=== PATIENT | male | born 1930 | race Caucasian/White ===

== ENCOUNTER 2019-02-05 15:05 | Inpatient (IN) | payer OTHER, MEDICARE ==
[~2019-02-05] VITALS: Ht 175.3 cm; Wt 72.1 kg
[2019-02-05 15:23] VITALS: BP_SYST 119
[2019-02-05 16:24] LABS: BASOPHILS % (AUTO) 0.5 % (0.0-2.0); EOSINOPHILS # (AUTO) 0.3 K/uL (0.0-0.4); EOSINOPHILS % (AUTO) 3.3 % (0.0-4.0); HEMATOCRIT 36.5 % (36-54); HEMOGLOBIN 12.3 g/dL (14.0-18.0); LYMPHOCYTES # (AUTO) 0.7 K/uL (1.0-5.5); LYMPHOCYTES % (AUTO) 8.7 % (20.5-51.5); MEAN CORPUSCULAR HEMOGLOBIN 32 pg (27-31); MEAN CORPUSCULAR HGB CONC 34 % (32-36); MEAN CORPUSCULAR VOLUME 95 fL (79.0-98.0); MONOCYTES # (AUTO) 0.5 K/uL (0.0-1.0); NEUTROPHILS # (AUTO) 6.1 K/uL (1.8-7.7); NEUTROPHILS % (AUTO) 80.5 % (40.0-70.0); PLATELET COUNT (AUTO) 173 K/uL (130-430); RED BLOOD CELL COUNT(AUTO) 3.84 MIL/uL (4.2-6.2); RED CELL DISTRIBUTION WIDTH 14.3 % (9.0-15.0); WHITE BLOOD COUNT (AUTO) 7.6 K/uL (4.8-10.8)
[2019-02-05] MEDS ORDERED: ALBUTEROL SULFATE 0.083% 2.5 MG/3 ML VIAL.NEB IH ONE (16:30)
[2019-02-05] MEDS ORDERED: IPRATROPIUM BROM 0.5 MG/2.5 ML VIAL.NEB (ATROVENT) IH ONE (16:30)
[2019-02-05 16:36] LABS: ANION GAP 13 (5-15); CALCIUM 9.3 mg/dL (8.4-11.0); CHLORIDE 106 mmol/L (98-107); GLUCOSE 93 mg/dL (70-99); POTASSIUM 3.9 mmol/L (3.5-5.1); SODIUM SERUM 142 mmol/L (136-145); UREA NITROGEN, BLOOD 41 mg/dL (8-21)
[2019-02-05 16:42] LABS: ALANINE AMINOTRANSFERASE 32 U/L (12-78); ALBUMIN 3.6 g/dL (3.4-4.8); ASPARTATE AMINOTRANSFERASE 28 U/L (10-37); TOTAL BILIRUBIN 0.7 mg/dL (0.0-1.0)
[2019-02-05] MEDS ORDERED: LISI-600 PO (17:25)
[2019-02-05] MEDS ORDERED: ROSU10TA2 PO (17:25)
[2019-02-05] MEDS ORDERED: SERT100T PO (17:25)
[2019-02-05] MEDS ORDERED: NACL 0.9% 1,000 ML IV ONE (17:30)
[2019-02-05] MEDS ORDERED: cefTRIAXone 1 GM in D5W 50 ML IV ONE (17:30)
[2019-02-05] MEDS ORDERED: cefTRIAXone 1 GM VIAL ONE (17:39)
[2019-02-05 18:22] VITALS: BP_SYST 135
[2019-02-05] MEDS ORDERED: IPRATROPIUM/ALBUTEROL SULFATE 3 ML AMPUL.NEB (DUONEB) INH PRN (18:30)
[2019-02-05] MEDS ORDERED: HYDROcodone/ACETAMIN 5-325 MG TAB (NORCO/ VICODIN) PO PRN (18:30)
[2019-02-05] MEDS ORDERED: ACETAMINOPHEN 325 MG TABLET PO PRN (18:30)
[2019-02-05] MEDS ORDERED: ONDANSETRON HCL 4 MG/2 ML VIAL IVP PRN (18:30)
[2019-02-05 19:33] LABS: PROTHROMBIN TIME 10.2 SECS (9.5-12.5)
[2019-02-05 19:39] LABS: PHOSPHORUS 3.2 mg/dL (2.7-4.5)
[2019-02-05 20:00] VITALS: BP_SYST 122
[2019-02-05 20:00] LABS: FREE T4 (FREE THYROXINE) 0.8 ng/dL (0.6-1.6); THYROID STIMULATING HORMONE 1.51 uIu/mL (0.34-4.82)
[2019-02-05 20:43] VITALS: BP_SYST 135
[2019-02-05] MEDS ORDERED: ZOLPIDEM TARTRATE 5 MG TABLET PO PRN (21:45)
[2019-02-05] MEDS: HEPARIN SODIUM,PORCINE 5000 UNITS/ML VIAL SUBCUT SCH (22:36)
[2019-02-05] MEDS: DOCUSATE SODIUM 100 MG CAPSULE PO SCH (22:36)
[2019-02-06 00:14] VITALS: BP_SYST 115
[2019-02-06 06:32] LABS: BASOPHILS % (AUTO) 0.9 % (0.0-2.0); EOSINOPHILS # (AUTO) 0.3 K/uL (0.0-0.4); EOSINOPHILS % (AUTO) 4.9 % (0.0-4.0); HEMATOCRIT 31.8 % (36-54); LYMPHOCYTES # (AUTO) 0.6 K/uL (1.0-5.5); LYMPHOCYTES % (AUTO) 12.2 % (20.5-51.5); MEAN CORPUSCULAR HEMOGLOBIN 33 pg (27-31); MEAN CORPUSCULAR HGB CONC 35 % (32-36); MEAN CORPUSCULAR VOLUME 94 fL (79.0-98.0); MONOCYTES # (AUTO) 0.5 K/uL (0.0-1.0); MONOCYTES % (AUTO) 9.2 % (1.7-9.3); NEUTROPHILS # (AUTO) 3.7 K/uL (1.8-7.7); NEUTROPHILS % (AUTO) 72.8 % (40.0-70.0); PLATELET COUNT (AUTO) 142 K/uL (130-430); RED BLOOD CELL COUNT(AUTO) 3.38 MIL/uL (4.2-6.2); RED CELL DISTRIBUTION WIDTH 14.3 % (9.0-15.0)
[2019-02-06 06:47] LABS: ANION GAP 10 (5-15); CALCIUM 8.6 mg/dL (8.4-11.0); CHLORIDE 111 mmol/L (98-107); CREATININE 1.02 mg/dL (0.55-1.30); GLUCOSE 107 mg/dL (70-99); POTASSIUM 3.7 mmol/L (3.5-5.1); SODIUM SERUM 144 mmol/L (136-145); UREA NITROGEN, BLOOD 30 mg/dL (8-21)
[2019-02-06 07:51] LABS: WHITE BLOOD COUNT (AUTO) 5.1 K/uL (4.8-10.8)
[2019-02-06 07:57] VITALS: BP_SYST 129
[2019-02-06] MEDS: DOCUSATE SODIUM 100 MG CAPSULE PO SCH (08:56)
[2019-02-06] MEDS: HEPARIN SODIUM,PORCINE 5000 UNITS/ML VIAL SUBCUT SCH (08:57)
[2019-02-06] MEDS ORDERED: MEMANTINE HCL 5 MG TABLET PO SCH (09:00)
[2019-02-06] MEDS ORDERED: SERTRALINE HCL 50 MG TABLET PO SCH (09:00)
[2019-02-06 12:00] VITALS: BP_SYST 133
[2019-02-06] MEDS ORDERED: LORazepam 1 MG TABLET PO PRN (14:15)
[2019-02-06] MEDS ORDERED: cefTRIAXone 1 GM IVPB PREMIX 50 ML IV SCH (18:30)
[2019-02-07] MEDS ORDERED: SERTRALINE HCL 50 MG TABLET PO SCH (09:00)
[2019-02-07] MEDS ORDERED: LISINOPRIL 20 MG TABLET PO SCH (09:00)
[2019-02-07] MEDS ORDERED: ATORVASTATIN 20 MG TABLET PO SCH (09:00)
== END 2019-02-06 14:55 | disposition left against medical advice (07) | DRG 640 ==
LOC: SED 15:05 → STU 17:35
PROVIDERS: ADMIT Student in an Organized Health Care Education/Training Program; ATTEND Student in an Organized Health Care Education/Training Program
DX: E86.0 Dehydration (principal); J18.9 Pneumonia, unspecified organism; J40 Bronchitis, not specified as acute or chronic; I10 Essential (primary) hypertension; E78.00 Pure hypercholesterolemia, unspecified; F29 Unspecified psychosis not due to a substance or known physiological condition; F32.9 Major depressive disorder, single episode, unspecified; G30.9 Alzheimer's disease, unspecified; F02.80 Dementia in other diseases classified elsewhere, unspecified severity, without behavioral disturbance, psychotic disturbance, mood disturbance, and anxiety; F41.9 Anxiety disorder, unspecified; E78.5 Hyperlipidemia, unspecified; Z53.21 Procedure and treatment not carried out due to patient leaving prior to being seen by health care provider; Z79.899 Other long term (current) drug therapy
CPT/HCPCS: 36415; 71045; 80048; 80053; 80061; 83036; 83605; 83735-TC; 83880; 84100-TC; 84439; 84443-TC; 84484; 85025; 85610-TC; 85730-TC; 87040-TC; 93005; 94640; 94760; 96365; 99285; G0378; J0696; J1644; J7030; J7613; J7620

== ENCOUNTER 2019-09-16 16:33 | Inpatient (IN) | payer OTHER, MEDICARE, SELFPAY ==
[~2019-09-16] VITALS: Ht 170.2 cm; Wt 70.8 kg
[2019-09-16 16:33] VITALS: BP_SYST 140
[~2019-09-16 16:33] MED LIST: LISI-600 PO; ROSU10TA2 PO; SERT100T PO
--- NOTE | 2019-09-16 16:33 | NUR ---
BROUGHT BACK TO BED #6 VIA WHEELCHAIR, TRIAGED, REPORT GIVEN TO LATONYA CASTELLANOS IS A POOR HISTORIAN, RECEIVED HISTORY FROM AND DAUGHTERS
--- NOTE | 2019-09-16 16:35 | NUR ---
PT C/O WORSENING SOB THAT HAS PROGRESSIVELY WORSE RECENTLY. PEDAL SWELLING NOTED. PT HAS H/O CHF. SPO2 STABLE, DIMINISHED LUNG SOUNDS.
--- NOTE | 2019-09-16 16:50 | NUR ---
ER at bedside examining patient.
[2019-09-16] MEDS ORDERED: FUROSEMIDE 40 MG/4 ML VIAL IVP ONE (17:00)
[2019-09-16] MEDS ORDERED: ASPIRIN 325 MG TABLET PO ONE (17:00)
[2019-09-16 17:04] LABS: BASOPHILS % (AUTO) 0.8 % (0.0-2.0); EOSINOPHILS # (AUTO) 0.1 K/uL (0.0-0.4); EOSINOPHILS % (AUTO) 1.7 % (0.0-4.0); HEMATOCRIT 42.5 % (36-54); HEMOGLOBIN 13.8 g/dL (14.0-18.0); LYMPHOCYTES # (AUTO) 0.4 K/uL (1.0-5.5); LYMPHOCYTES % (AUTO) 10.9 % (20.5-51.5); MEAN CORPUSCULAR HEMOGLOBIN 31 pg (27-31); MEAN CORPUSCULAR HGB CONC 33 % (32-36); MEAN CORPUSCULAR VOLUME 94 fL (79.0-98.0); MONOCYTES # (AUTO) 0.3 K/uL (0.0-1.0); MONOCYTES % (AUTO) 8.4 % (1.7-9.3); NEUTROPHILS # (AUTO) 3.1 K/uL (1.8-7.7); NEUTROPHILS % (AUTO) 78.2 % (40.0-70.0); PLATELET COUNT (AUTO) 146 K/uL (130-430); RED CELL DISTRIBUTION WIDTH 16.8 % (9.0-15.0)
[2019-09-16 17:13] LABS: ANION GAP 5 (5-15); CHLORIDE 104 mmol/L (98-107); CREATININE 1.47 mg/dL (0.55-1.30); GLUCOSE 113 mg/dL (70-99); POTASSIUM 4.2 mmol/L (3.5-5.1); SODIUM SERUM 137 mmol/L (136-145); UREA NITROGEN, BLOOD 13 mg/dL (8-21)
[2019-09-16 17:21] LABS: ALANINE AMINOTRANSFERASE 32 U/L (12-78); ALBUMIN 3.1 g/dL (3.4-4.8); ASPARTATE AMINOTRANSFERASE 29 U/L (10-37); TOTAL BILIRUBIN 0.6 mg/dL (0.0-1.0)
[2019-09-16] MEDS ORDERED: VANCOMYCIN HCL 1,000 MG in NS 250 ML IV ONE (18:00)
[2019-09-16] MEDS ORDERED: VANCOMYCIN HCL 1000 MG/VIAL IV ONE (18:27)
--- NOTE | 2019-09-16 18:44 | NUR ---
Patient will be admitted to care of Dr. Brown. Admitted to telemetry unit. Waiting for room assignment. Belongings list completed. Complete and up to date summary report printed. SBAR report to be given at bedside with opportunity for questions.
--- NOTE | 2019-09-16 18:45 | NUR ---
Unable to complete medication reconcilliation at this time.
--- NOTE | 2019-09-16 19:17 | NUR ---
Report given to Rob for continuation of care.
[2019-09-16] MEDS ORDERED: HALOPERIDOL LACTATE 5 MG/ML VIAL IM ONE (19:30)
[2019-09-16] MEDS ORDERED: DIPHENHYDRAMINE INJ 50 MG/ML VIAL IVP ONE (19:30)
[2019-09-16] MEDS ORDERED: QUEtiapine FUMARATE 25 MG TABLET PO SCH (19:30)
--- NOTE | 2019-09-16 20:12 | NUR ---
Patient will be admitted to care of . Admitted to Tele unit. Will go to room 120B. Belongings list completed. Complete and up to date summary report printed. SBAR report to be given at bedside with opportunity for questions.
--- NOTE | 2019-09-16 20:26 | NUR ---
Transfer to Tele via ACLS protocol. Licensed nurse present. IV present no signs or symptoms of infiltration.
--- NOTE | 2019-09-16 20:35 | NUR ---
Phelbotomist at bedside, drawn blood for Lactic acid.
--- NOTE | 2019-09-16 20:51 | NUR ---
ADMIT NOTE Received pt from ER to the floor with a diagnosis of PNA, ACUTE RESPIRATORY. Admission process initiated. patient oriented to pain management, safety and call light-pt is confused, safety p[recaution in place by primary rn.
[2019-09-16 21:12] VITALS: BP_SYST 98
--- NOTE | 2019-09-16 21:30 | NUR ---
Patient is ambulating to the doorway, confused. Reoriented patient to hospital and plan of care. Patient yells abruptly after being covered saying he is cold. Explained to patient that he has blankets covering him but patient is not calming down. Will continue to monitor.
--- NOTE | 2019-09-16 23:30 | NUR ---
Patient is confused, walks to the restroom but does not remember where he is after orienting patient. No signs of acute respiratory distress observed. Will continue to monitor.
--- NOTE | 2019-09-17 01:07 | NUR ---
Patient is agitated, 8 min of Uncontrolled Afib with highest heart rate at 122, Blood pressure 115/ 65, pulse 75. No signs of shortness of breath. Orienting patient to room and patient is complaining that it is cold and he cannot feel comfortable. Will continue to monitor.
[2019-09-17 01:48] VITALS: BP_SYST 100
--- NOTE | 2019-09-17 01:55 | NUR ---
2ND PAGE FOR DR DEUTSCH.
--- NOTE | 2019-09-17 02:15 | NUR ---
Patient is confused ambulates to the doorway with steady gait. Reorientation to be provided and explained to patient that he has to stay in the room and bed for his safety. Patient is not understanding and does not know which hospital he is at.
--- NOTE | 2019-09-17 02:39 | NUR ---
3RD PAGE FOR DR. DEUTSCH.
--- NOTE | 2019-09-17 02:53 | NUR ---
PAGED I PAGED DR. DEUTSCH I SPOKE WITH JOSELITO CRISTINA
--- NOTE | 2019-09-17 02:57 | NUR ---
SPOKE TO DR. DEUTSCH, MADE AWARE OF 8 MIN OF UNCONTROLLED AFIB WITH ELEVATED HEART RATE OF 122, NEW ORDER OF CONSULT DR. CIFUENTES RECEIVED AND HALDOL 2MG PO Q4 PRN RECEIVED.
--- NOTE | 2019-09-17 03:30 | NUR ---
Patient is resting, no signs of shortness of breath noted. Will continue to monitor.
[2019-09-17] MEDS: DIPHENHYDRAMINE INJ 50 MG/ML VIAL IVP PRN ×2 (03:46→14:16)
--- NOTE | 2019-09-17 04:12 | NUR ---
CONSULT: CONSULT CALLED FOR DR. CIFUENTES I SPOKE WITH UMURY IBETH REASON FOR CONSULT: DYSRHYTHMIA / A FIB REQUESTING CONSULT: DR. DEUTSCH EXPLORATION MANAGER PHONE NUMBER: [phone]
[2019-09-17 06:02] LABS: BILIRUBIN,URINE NEGATIVE (NEGATIVE); BLOOD, URINE NEGATIVE (NEGATIVE); CLARITY/URINE CLEAR (CLEAR); COLOR,URINE YELLOW (YELLOW); GLUCOSE,URINE NEGATIVE (NEGATIVE); KETONES,URINE NEGATIVE (NEGATIVE); LEUKOCYTE ESTERASE ,URINE NEGATIVE (NEGATIVE); NITRITE, URINE NEGATIVE (NEGATIVE); PH,URINE 5.5 (5.0-8.0); PROTEIN URINE TRACE (NEGATIVE); UROBILINOGEN,URINE 0.2 (0.2-1.0)
[2019-09-17 06:43] LABS: BASOPHILS % (AUTO) 0.8 % (0.0-2.0); EOSINOPHILS % (AUTO) 0.8 % (0.0-4.0); HEMATOCRIT 41.1 % (36-54); HEMOGLOBIN 13.4 g/dL (14.0-18.0); LYMPHOCYTES # (AUTO) 0.3 K/uL (1.0-5.5); LYMPHOCYTES % (AUTO) 7.2 % (20.5-51.5); MEAN CORPUSCULAR HEMOGLOBIN 31 pg (27-31); MEAN CORPUSCULAR HGB CONC 33 % (32-36); MEAN CORPUSCULAR VOLUME 94 fL (79.0-98.0); MONOCYTES # (AUTO) 0.4 K/uL (0.0-1.0); MONOCYTES % (AUTO) 8.5 % (1.7-9.3); NEUTROPHILS # (AUTO) 3.4 K/uL (1.8-7.7); NEUTROPHILS % (AUTO) 82.7 % (40.0-70.0); PLATELET COUNT (AUTO) 129 K/uL (130-430); RED BLOOD CELL COUNT(AUTO) 4.38 MIL/uL (4.2-6.2); RED CELL DISTRIBUTION WIDTH 16.7 % (9.0-15.0); WHITE BLOOD COUNT (AUTO) 4.1 K/uL (4.8-10.8)
[2019-09-17 07:13] LABS: ALANINE AMINOTRANSFERASE 30 U/L (12-78); ALBUMIN 2.9 g/dL (3.4-4.8); ANION GAP 8 (5-15); ASPARTATE AMINOTRANSFERASE 28 U/L (10-37); CHLORIDE 104 mmol/L (98-107); CREATININE 1.48 mg/dL (0.55-1.30); FREE T4 (FREE THYROXINE) 0.9 ng/dl (0.8-1.5); GLUCOSE 95 mg/dL (70-99); PHOSPHORUS 3.8 mg/dL (2.7-4.5); POTASSIUM 3.6 mmol/L (3.5-5.1); SODIUM SERUM 140 mmol/L (136-145); THYROID STIMULATING HORMONE 8.13 uIu/mL (0.36-3.74); TOTAL BILIRUBIN 0.7 mg/dL (0.0-1.0); UREA NITROGEN, BLOOD 13 mg/dL (8-21)
--- NOTE | 2019-09-17 07:21 | NUR ---
CLOSING NOTES Patient is ambulating regardless of reorienting, steady gait. Patient is not agitated, no shortness of breath observed, room air. Iv site patent, dressings c/d/i. Call light within reach, bed alarm off per patient request, bed at lowest position. Patient has put on clothes on, as patient is confused and refuses to change into hospital gown. All needs met throughout shift. Endorsed care to morning nurse that if patient refuses Haldol 2mg PO, HALDOL IM 2MG can be provided and 8 min of Afib during the overnight stocker and that patient was still agitated after the first Benadryl.
--- NOTE | 2019-09-17 08:07 | NUR ---
INITIAL NOTES: Patient is awake but confused, resting in bed. No signs of distress or nonlabored breathing on RA. Denies pain or nausea. IV on LFA was not intact, removed and applied a new IV on RFA #24G. Cluster care was provided, breakfast tray was given along w/morning meds, skin care was provided as well. Report was received by awake overnight monitor nurse. Patient will need frequent reorientation throughout shift. Bed is low, locked, 2 side rails up and call light is within reach. Burt DIAL
[2019-09-17] MEDS: cefTRIAXone 1 GM in D5W 50 ML IV SCH (08:16)
[2019-09-17] MEDS: ATORVASTATIN 20 MG TABLET PO SCH (08:16)
[2019-09-17] MEDS: AZITHROMYCIN 500 MG in NS 250 ML IV SCH (08:16)
[2019-09-17] MEDS: SERTRALINE HCL 50 MG TABLET PO SCH (08:17)
[2019-09-17] MEDS ORDERED: LISINOPRIL 20 MG TABLET PO SCH (09:00)
[2019-09-17 09:23] VITALS: BP_SYST 118
--- NOTE | 2019-09-17 09:28 | NUR ---
Nutrition Update [place] Scale 18 noted. Pt admitted for pneumonia, acute respiratory. Diet: mechanical soft BMI: 24.6 kg/m2 RD to follow per nutrition care standards.
--- NOTE | 2019-09-17 10:20 | NUR ---
Placed patient up on chair, reoriented patient several times as he forgets because of the dementia. I dialed his son in his room so patient could talk to him. Bed is low, locked, 2 side rails are up and call light is within reach. Burt DIAL
--- NOTE | 2019-09-17 10:40 | NUR ---
EKG ON HOLD: Per , hold EKG for now. We will do procedure tomorrow if patient is negative. Asked Nestor to relay the message to the EKG team. Burt DIAL
[2019-09-17] MEDS ORDERED: CARVEDILOL 6.25 MG TABLET (COREG) PO ONE (11:00)
[2019-09-17] MEDS ORDERED: FUROSEMIDE 40 MG/4 ML VIAL IVP ONE (11:00)
--- NOTE | 2019-09-17 12:15 | NUR ---
Patient is sitting on chair, gave meal tray, gave reorientation. Bed is low, locked, 2 side rails up and call light is within reach. Burt DIAL
[2019-09-17 12:55] VITALS: BP_SYST 110
[2019-09-17] MEDS: HALOPERIDOL 1 MG TABLET (HALDOL) PO PRN (13:33)
--- NOTE | 2019-09-17 14:17 | NUR ---
Patient was reoriented and then sat him back in bed, getting a little anxious and agitated from being alone in the room. Benadryl was given and tucked in. 3 side rails are up to prevent him from falling. Bed is low, locked, 2 side rails up and call light is within reach. Burt DIAL
[2019-09-17] MEDS ORDERED: TAMSULOSIN HCL 0.4 MG CAP PO ONE (15:45)
--- NOTE | 2019-09-17 16:01 | NUR ---
CONSULTATION PAGED REASON FOR CONSULTATION:CONFUSION WAS CONSULT CALLED?Y PERSON WHO WAS NOTIFIED:CLAIRE CONSULTING PHYSICIAN:CLIF KUO ( PROJECT MANAGER/DESIGN MANAGER) CRAFT WORKER SPECIALTY:PSYCH CRAFT WORKER PHONE NUMBER:[phone] REQUESTING PHYSICIAN:BILL DOOLEY
[2019-09-17 16:44] VITALS: BP_SYST 116
--- NOTE | 2019-09-17 17:59 | NUR ---
Patient is up sitting in chair having dinner, he is not showing any signs of distress. His son was called from the rooms phone and he and the patient talked for a few minutes. Bed is low, locked, 2 side rails up and call light is within reach. Burt DIAL
--- NOTE | 2019-09-17 18:51 | NUR ---
Closing notes: Patient is awake and sitting on the chair. No signs of distress or nonlabored breathing. Denies pain at this time. IV is patents and not running anything at this time. Patients covid test remains pending at this time, will endorse to nurse. Report will be given to warehouse supervisor 3rd shift nurse. Bed is low, locked, 2 side rails up and call light is within reach. Burt DIAL
--- NOTE | 2019-09-17 20:09 | NUR ---
YAZAN DEUTSCH I Addendum: 09/17/19 at 2015 by Marjorie Zee [place]/ I EDUARDO WITH ERIC
--- NOTE | 2019-09-17 20:10 | NUR ---
Dr. Brown: Spoke with MD over phone to inform him regarding negative COVID-19 test. MD ordered to D/C COVID-19 isolation precautions. Verified by read-back, RN to input.
--- NOTE | 2019-09-17 20:14 | NUR ---
DR. DEUTSCH CALLED BACK @ 2013
--- NOTE | 2019-09-17 23:24 | NUR ---
received report from pau ontiveros at 2305. pt has bilat pedal edema - 4+. feet cool to touch. pt rousable. meds from 1800 on were not passed - will pass them now.
[2019-09-17] MEDS: MIRTAZAPINE 15 MG TABLET PO SCH (23:38)
[2019-09-17] MEDS: CARVEDILOL 6.25 MG TABLET (COREG) PO SCH (23:38)
[2019-09-18 06:25] LABS: EOSINOPHILS % (AUTO) 1.3 % (0.0-4.0); HEMATOCRIT 40.3 % (36-54); HEMOGLOBIN 13.3 g/dL (14.0-18.0); LYMPHOCYTES # (AUTO) 0.4 K/uL (1.0-5.5); LYMPHOCYTES % (AUTO) 11.9 % (20.5-51.5); MEAN CORPUSCULAR HEMOGLOBIN 31 pg (27-31); MEAN CORPUSCULAR HGB CONC 33 % (32-36); MEAN CORPUSCULAR VOLUME 94 fL (79.0-98.0); MONOCYTES # (AUTO) 0.4 K/uL (0.0-1.0); MONOCYTES % (AUTO) 10.1 % (1.7-9.3); NEUTROPHILS # (AUTO) 2.7 K/uL (1.8-7.7); NEUTROPHILS % (AUTO) 75.7 % (40.0-70.0); PLATELET COUNT (AUTO) 134 K/uL (130-430); RED BLOOD CELL COUNT(AUTO) 4.27 MIL/uL (4.2-6.2); RED CELL DISTRIBUTION WIDTH 16.8 % (9.0-15.0); WHITE BLOOD COUNT (AUTO) 3.5 K/uL (4.8-10.8)
[2019-09-18 07:03] LABS: ALANINE AMINOTRANSFERASE 32 U/L (12-78); ALBUMIN 2.9 g/dL (3.4-4.8); ANION GAP 6 (5-15); ASPARTATE AMINOTRANSFERASE 33 U/L (10-37); CALCIUM 8.4 mg/dL (8.4-11.0); CHLORIDE 103 mmol/L (98-107); CHOLESTEROL 119 mg/dL (<200); CREATININE 1.82 mg/dL (0.55-1.30); GLUCOSE 87 mg/dL (70-99); HDL CHOLESTEROL 56 mg/dL (>45); LDL CHOLESTEROL 51 mg/dL (<100); POTASSIUM 3.7 mmol/L (3.5-5.1); SODIUM SERUM 138 mmol/L (136-145); THYROID STIMULATING HORMONE 4.87 uIu/mL (0.34-4.82); TOTAL BILIRUBIN 0.7 mg/dL (0.0-1.0); TRIGLYCERIDES 52 mg/dL (30-150); UREA NITROGEN, BLOOD 22 mg/dL (8-21)
--- NOTE | 2019-09-18 07:15 | NUR ---
opening note received bedside SBAR from night RN, patient in bed, eyes closed, respirations even, non labored, bed in low and locked position, call light on, bed alarm on
[2019-09-18 08:00] VITALS: BP_SYST 109
[2019-09-18] MEDS: FUROSEMIDE 40 MG TABLET PO SCH (08:34)
[2019-09-18] MEDS: CARVEDILOL 6.25 MG TABLET (COREG) PO SCH ×2 (08:35→20:43)
[2019-09-18] MEDS: TAMSULOSIN HCL 0.4 MG CAP PO SCH (08:36)
[2019-09-18] MEDS: ATORVASTATIN 20 MG TABLET PO SCH (08:37)
[2019-09-18] MEDS: SERTRALINE HCL 50 MG TABLET PO SCH (08:37)
--- NOTE | 2019-09-18 09:00 | NUR ---
iv unable to flush IV, attempt to insert new IV, patient tolerated well, no signs of discomfort
[2019-09-18] MEDS: cefTRIAXone 1 GM in D5W 50 ML IV SCH (09:01)
--- NOTE | 2019-09-18 09:30 | NUR ---
IV STARTED NEW IV RIGHT FOREARM, 22G, EASILY FLUSHED, NO SIGNS OF INFILTRATION, PATIENT TOLERATED WELL, NO SIGNS OF DISCOMFORT, ATTACHED TO IV FLUIDS
--- NOTE | 2019-09-18 09:45 | NUR ---
MD ROUNDS DR. CIFUENTES BEDSIDE EXAMINING PATIENT
--- NOTE | 2019-09-18 11:38 | NUR ---
NURSE ROUNDS ASSISTED PATIENT TO AMBULATE TO THE BATHROOM, VOIDED, URINE, CLEAR, YELLOW, NO ODOR, ASSISTED PATIENT BACK TO BED, BED IN LOW AND LOCKED POSITION, CALL LIGHT WITHIN REACH, BED ALARM ON
[2019-09-18] MEDS: AZITHROMYCIN 500 MG in NS 250 ML IV SCH (12:00)
--- NOTE | 2019-09-18 12:00 | NUR ---
IV PATIENT REMOVED IV
--- NOTE | 2019-09-18 12:06 | NUR ---
medication started second antibiotic late due to having to insert new iv
[2019-09-18 12:16] VITALS: BP_SYST 100
--- NOTE | 2019-09-18 12:47 | NUR ---
PAGED PAGED ALLYSSA CLEVELAND AT [phone] SPOKE WITH CHRISTIAN.
--- NOTE | 2019-09-18 13:49 | NUR ---
iv reinserted iv, left forerarm, 22g started iv fluids, patient had $79.00 in his has, moved it to [facility]
--- NOTE | 2019-09-18 15:43 | NUR ---
NURSE NOTES PATIENT DRESSED HIMSELF, STATES HE IS "GOING HOME ONCE HE FINDS HIS KEYS", HAVE REMOVED IV FLUIDS, PLACED A CHAIR OUTSIDE OF THE ROOM FOR PATIENT TO SIT IN, PATIENT IS CONFUSED, STAFF SITTING WITH PATIENT
[2019-09-18] MEDS: HALOPERIDOL 1 MG TABLET (HALDOL) PO PRN ×2 (15:52→20:43)
[2019-09-18 16:07] VITALS: BP_SYST 110
--- NOTE | 2019-09-18 16:15 | NUR ---
tele monitor patient refuses to wear monitor
[2019-09-18] MEDS: DIPHENHYDRAMINE INJ 50 MG/ML VIAL IVP PRN ×2 (16:44→20:44)
[2019-09-18] MEDS: QUEtiapine FUMARATE 25 MG TABLET PO SCH ×2 (18:24→18:26)
--- NOTE | 2019-09-18 18:33 | NUR ---
nurse notes patient in room sitting on chair, talking on phone with patients, respirations even, non labored, call light within reach, refuses to wear tele monitor,
--- NOTE | 2019-09-18 19:20 | NUR ---
CLOSING NOTE BEDSIDE SBAR GIVEN TO NIGHT RN, PATIENT IN BED, EYES CLOSED, RESPIRATIONS EVEN, NON LABORED, BED IN LOW AND LOCKED POSITION, BED ALARM ON, CALL LIGHT WITHIN REACH, ENDORSED CARE TO NIGHT RN
--- NOTE | 2019-09-18 19:45 | NUR ---
A/A/O X1.AMBULATORY .PT IN NURSING STATION TALKING TO RN.ASSISTED BACK TO BED.HOOKED TO TELE BOX.DENIES ANY DISCOMFORT @ THIS TIME.DENIES SOB.INSTRUCTED TO USE CALL LIGHT NEEDED;WITHIN REACH.
[2019-09-18 20:00] VITALS: BP_SYST 132
--- NOTE | 2019-09-18 20:00 | NUR ---
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
[2019-09-18] MEDS: MIRTAZAPINE 15 MG TABLET PO SCH (20:43)
--- NOTE | 2019-09-18 20:43 | NUR ---
VERY CONFUSED ,PULLING HIS TELE BOX .TRIED TO GET OUT BED.DUE MEDS ADM.VINOD ZIMMERMAN ADM & EULALIO SPIVEYP ADM.
--- NOTE | 2019-09-18 22:00 | NUR ---
RESTING COMFORTABLY POST HALDOL PO & BENADRYL IVP.
[2019-09-18 23:45] VITALS: BP_SYST 123
--- NOTE | 2019-09-19 | NUR ---
AFEBRILE.V/S STABLE.TELE SHOWED SR WITH 1ST DEGREE AV BLOCK/BBB.
[2019-09-19] MEDS: HALOPERIDOL 1 MG TABLET (HALDOL) PO PRN ×2 (01:13→12:59)
--- NOTE | 2019-09-19 01:13 | NUR ---
GOT VERY CONFUSED OOB.PULLING HIS TELE BOX .ASSISTED BACK TO BED WITH ANOTHER RN. VINOD ZIMMERMAN & EULALIO NAVARRO ADM. BED ALARM ON.
[2019-09-19] MEDS: DIPHENHYDRAMINE INJ 50 MG/ML VIAL IVP PRN (01:14)
--- NOTE | 2019-09-19 02:15 | NUR ---
FOUND RESTING COMFORTABLY IN NO ACUTE DISTRESS.
--- NOTE | 2019-09-19 04:00 | NUR ---
ASLEEP IN NO ACUTE DISTRESS.TELE SHOWED SR WITH 1ST DEGREE AV BLOCK/BBB.
[2019-09-19 06:41] LABS: BASOPHILS % (AUTO) 1.3 % (0.0-2.0); EOSINOPHILS # (AUTO) 0.1 K/uL (0.0-0.4); EOSINOPHILS % (AUTO) 3.6 % (0.0-4.0); HEMATOCRIT 41.5 % (36-54); HEMOGLOBIN 13.7 g/dL (14.0-18.0); LYMPHOCYTES # (AUTO) 0.5 K/uL (1.0-5.5); LYMPHOCYTES % (AUTO) 14.2 % (20.5-51.5); MEAN CORPUSCULAR HEMOGLOBIN 31 pg (27-31); MEAN CORPUSCULAR HGB CONC 33 % (32-36); MEAN CORPUSCULAR VOLUME 93 fL (79.0-98.0); MONOCYTES # (AUTO) 0.3 K/uL (0.0-1.0); MONOCYTES % (AUTO) 9.2 % (1.7-9.3); NEUTROPHILS # (AUTO) 2.6 K/uL (1.8-7.7); NEUTROPHILS % (AUTO) 71.7 % (40.0-70.0); PLATELET COUNT (AUTO) 144 K/uL (130-430); RED BLOOD CELL COUNT(AUTO) 4.44 MIL/uL (4.2-6.2); WHITE BLOOD COUNT (AUTO) 3.6 K/uL (4.8-10.8)
--- NOTE | 2019-09-19 06:47 | NUR ---
ENDORSED RESTING COMFORTABLY IN NO ACUTE DISTRESS.SAFETY MAINTAINED.
--- NOTE | 2019-09-19 07:30 | NUR ---
Initial notes- Received report, Pt asleep at this time. seems comfortable. No distress noted.
[2019-09-19 07:33] LABS: ANION GAP 7 (5-15); CALCIUM 8.3 mg/dL (8.4-11.0); CHLORIDE 101 mmol/L (98-107); CREATININE 1.76 mg/dL (0.55-1.30); GLUCOSE 71 mg/dL (70-99); SODIUM SERUM 138 mmol/L (136-145); UREA NITROGEN, BLOOD 26 mg/dL (8-21)
--- NOTE | 2019-09-19 08:00 | NUR ---
Notes- awake now, disoriented to time and place. went to CT scan
[2019-09-19 08:05] VITALS: BP_SYST 118
--- NOTE | 2019-09-19 08:30 | NUR ---
Notes- back to CT scan. Sitting in the chair eating breakfast. denies any chest pain or shortness of breath. on room air tolerated well.
[2019-09-19] MEDS: ATORVASTATIN 20 MG TABLET PO SCH (08:51)
[2019-09-19] MEDS: SERTRALINE HCL 50 MG TABLET PO SCH (08:51)
[2019-09-19] MEDS: FUROSEMIDE 40 MG TABLET PO SCH (08:52)
[2019-09-19] MEDS: TAMSULOSIN HCL 0.4 MG CAP PO SCH (08:52)
[2019-09-19] MEDS: cefTRIAXone 1 GM in D5W 50 ML IV SCH (08:52)
[2019-09-19] MEDS: CARVEDILOL 6.25 MG TABLET (COREG) PO SCH ×2 (08:52→20:29)
--- NOTE | 2019-09-19 09:16 | NUR ---
MD rounds Seen by Dr. Tejada at bedside. Aware of pottasium results.
[2019-09-19] MEDS: AZITHROMYCIN 500 MG in NS 250 ML IV SCH (09:29)
[2019-09-19] MEDS ORDERED: POTASSIUM CHLORIDE 20 MEQ TAB.PRT.SR PO ONE (09:45)
--- NOTE | 2019-09-19 11:00 | NUR ---
notes- Assisted back to bed. Pt tolerates sitting in the chair for 2 hours. Denies any shortness of breath.
[2019-09-19 12:18] VITALS: BP_SYST 114
--- NOTE | 2019-09-19 12:30 | NUR ---
Notes- sitting in the chair, eat most of his lunch. Patient still disoriented. able to walk in the bathroom with minimal assist. will monitor.
--- NOTE | 2019-09-19 16:00 | NUR ---
Notes- Pt keeps walking in and out of the room. Pt is very disoriented and wants to go home. No acute distress noted.
[2019-09-19 16:20] VITALS: BP_SYST 129
[2019-09-19] MEDS: QUEtiapine FUMARATE 25 MG TABLET PO SCH (17:11)
--- NOTE | 2019-09-19 17:30 | NUR ---
consults- Spoke to Dr. De Dios and made aware of consults and CT scan results.
--- NOTE | 2019-09-19 17:40 | NUR ---
CONSULTATION PAGED REASON FOR CONSULTATION:PLEURAL EFFUSION WAS CONSULT CALLED?Y PERSON WHO WAS NOTIFIED:PAGED DRS PAGER CONSULTING PHYSICIAN:GLORIA GERMAN MIXER WHIPPED TOPPING SPECIALTY:PULMONARY MIXER WHIPPED TOPPING PHONE NUMBER:[phone] REQUESTING PHYSICIAN:JEFFREY DOOLEY
--- NOTE | 2019-09-19 18:55 | NUR ---
closing notes- Sitting in the chair, still confused. on room air. no distress noted.
--- NOTE | 2019-09-19 19:45 | NUR ---
INITIAL NOTE RECEIVED PATIENT IN BED LETHARGIC WITH EYES CLOSED, AROUSABLE TO AUDITORY STIMULI. PATIENT DISORIENTED, AOX2. PATIENT ON ROOM AIR WITH RESPIRATIONS EVEN AND UNLABORED. IV TO LEFT FOREARM SL WITH NO SIGNS OF INFILTRATION, FLUSHES WELL. NO SIGNS OF DISTRESS NOTED. BED IN LOWEST POSITION. BED ALARM ON. CALL LIGHT WITHIN REACH. WILL CONTINUE TO MONITOR.
[2019-09-19 20:15] VITALS: BP_SYST 77
--- NOTE | 2019-09-19 20:15 | NUR ---
MED PASS HELP BP MEDS DUE TO LOW BLOOD PRESSURE 77/51 PULSE 56. NO SIGNS OF DISTRESS NOTED. PAIN REFUSING SCHEDULED PO MEDS, HE SPITS THEM OUT AND WILL NOT SWALLOW MEDICATIONS AT THIS TIME. OFFERED WATER AND PATIENT BEGAN TO SHOUT "LET ME SLEEP, I DON'T WANT MEDICATION." EDUCATED PATIENT ON IMPORTANCE OF TAKING MEDICATION, PATIENT CONTINUES TO REFUSE. CHARGE NURSE MADE AWARE.
[2019-09-19] MEDS: traZODone HCL 50 MG TABLET (DESYREL) PO SCH ×2 (20:25→20:36)
[2019-09-19] MEDS: MIRTAZAPINE 15 MG TABLET PO SCH ×2 (20:25→20:37)
--- NOTE | 2019-09-19 21:30 | NUR ---
ROUNDS PATIENT GOT OUT OF BED, ATTEMPTED TO AMBULATE BUT STOOD UPRIGHT IN PLACE, SPILLED WATER. PATIENT DISORIENTED, REORIENTED PATIENT TO ROOM AND REMINDED HIM HE IS IN THE HOSPITAL. PATIENT COOPERATED AND GOT BACK IN BED. 3 SIDE RAILS REMAIN UP, BED ALARM ON, CALL LIGHT WITHIN REACH.
--- NOTE | 2019-09-20 00:05 | NUR ---
ROUNDS PATIENT COMPLAINS OF FEELING COLD, PROVIDED A HEATED BLANKET. PATIENT RESTING IN BED COMFORTABLY WITH HOB ELEVATED. NO ADDITIONAL NEEDS AT THIS TIME.
[2019-09-20 00:16] VITALS: BP_SYST 111
--- NOTE | 2019-09-20 07:03 | NUR ---
Closing Note patient awake, watching TV. Patient states he is hungry, provided snacks. Picture taken of skin tear on right forearm. Patient stable at this time with no distress noted. Safety measures remain in place. Will monitor until endorsed to AM nurse.
[2019-09-20 08:00] VITALS: BP_SYST 93
--- NOTE | 2019-09-20 08:00 | NUR ---
initial notes rec patient awake but very confused. ivl on the l forearm intact. no infiltration noted. resp easy and unlabored. no sob noted. bed to the lowest posotion and side rails up and locked. call light within reached. pt close to the nurses station
[2019-09-20] MEDS: TAMSULOSIN HCL 0.4 MG CAP PO SCH (08:38)
[2019-09-20] MEDS: cefTRIAXone 1 GM in D5W 50 ML IV SCH (08:38)
[2019-09-20] MEDS: SERTRALINE HCL 50 MG TABLET PO SCH (08:38)
[2019-09-20] MEDS: ATORVASTATIN 20 MG TABLET PO SCH (08:38)
[2019-09-20] MEDS: POTASSIUM CHLORIDE 20 MEQ TAB.PRT.SR PO SCH (08:39)
[2019-09-20] MEDS: FUROSEMIDE 40 MG TABLET PO SCH (08:39)
[2019-09-20] MEDS: CARVEDILOL 6.25 MG TABLET (COREG) PO SCH ×2 (09:00→20:43)
[2019-09-20] MEDS: AZITHROMYCIN 500 MG in NS 250 ML IV SCH (09:01)
--- NOTE | 2019-09-20 10:51 | NUR ---
rounds ambulates at intervals at bedside and with period of confusion when awake.
[2019-09-20 12:17] VITALS: BP_SYST 99
--- NOTE | 2019-09-20 14:00 | NUR ---
rounds confused at intervals and reorient at intervals. no osb noted. bed to the lowest position and side rails up and locked.
--- NOTE | 2019-09-20 14:21 | NUR ---
Discharge Barriers: pending pulmonology consultation for Pleural effusion and Dr Qureshi reevaluation for 5150 hold.
--- NOTE | 2019-09-20 16:00 | NUR ---
rounds seen by dr santos and emili order for thoracenteis in am. was seen as ell by dr aponte and dr pretty. dr aponte spoke with pt's family and updated them re condition.
[2019-09-20 16:43] VITALS: BP_SYST 110
[2019-09-20 17:23] LABS: ANION GAP 6 (5-15); CALCIUM 8.2 mg/dL (8.4-11.0); CHLORIDE 105 mmol/L (98-107); CREATININE 1.61 mg/dL (0.55-1.30); GLUCOSE 113 mg/dL (70-99); POTASSIUM 4.2 mmol/L (3.5-5.1); SODIUM SERUM 144 mmol/L (136-145); UREA NITROGEN, BLOOD 23 mg/dL (8-21)
--- NOTE | 2019-09-20 17:30 | NUR ---
rounds ambulating at the nurses station. no osb noted. call light withn reached. pt close to the nurses station.
--- NOTE | 2019-09-20 19:30 | NUR ---
INITIAL NOTE RECEIVED PATIENT SITTING UP IN BED AWAKE, PLEASANTLY CONFUSED. PATIENT ON ROOM AIR WITH RESPIRATIONS EVEN AND UNLABORED. IV ANTIBIOTICS RUNNING TO LEFT UPPERARM WITH NO SIGNS OF INFILTRATION. PT TOLERATING. PT STABLE. BED IN LOWEST POSITION. BED ALARM ON. CALL LIGHT WITHIN REACH. PT DEMONSTRATES HOW TO USE CALL LIGHT. WILL CONTINUE TO MONITOR.
[2019-09-20 20:15] VITALS: BP_SYST 79
--- NOTE | 2019-09-20 20:30 | NUR ---
SPOKE WITH DR DEUTSCH SPOKE WITH DR DEUTSCH REGARDING PATIENTS LOW BP 79/53. NO NEW ORDERS RECEIVED. WILL CONTINUE TO MONITOR PATIENT.
[2019-09-20] MEDS: traZODone HCL 50 MG TABLET (DESYREL) PO SCH (20:46)
[2019-09-20] MEDS: MIRTAZAPINE 15 MG TABLET PO SCH (20:46)
--- NOTE | 2019-09-20 21:30 | NUR ---
IV PULLED OUT PATIENT ACCIDENTALLY PULLED OUT IV WHEN ATTEMPTING TO GET OUT OF BED TO AMBULATE. CANNULA INTACT, COVERED SITE WITH GAUZE AND TAPE. WILL INSERT AT A LATER TIME PATIENT IS CURRENTLY AGITATED. WILL CONTINUE TO MONITOR.
--- NOTE | 2019-09-20 23:02 | NUR ---
ROUNDS CONFUSED AND AMBULATING AT BEDSIDE. REORIENTED PATIENT AND ASSISTED BACK TO BED. WILL CONTINUE TO MONITOR.
[2019-09-21 01:07] VITALS: BP_SYST 117
--- NOTE | 2019-09-21 01:20 | NUR ---
ROUNDS PT RESTING IN BED COMFORTABLY WITH EYES CLOSED, NO SIGNS OF DISTRESS NOTED. WILL CONTINUE TO MONITOR.
--- NOTE | 2019-09-21 04:15 | NUR ---
Replaced IV Placed IV to left forearm 24G, IV patent and in place. Flushing well with no signs of infiltration noted. Covered with transparent dressing and secured with gauze wrap.
[2019-09-21] MEDS: HALOPERIDOL 1 MG TABLET (HALDOL) PO PRN ×2 (05:56→15:56)
--- NOTE | 2019-09-21 06:00 | NUR ---
Closing Note Patient awake in bed, remains confused. Agitated. Medicated as ordered. Will continue to monitor. No signs of respiratory distress noted. Safety measures in place. Bed alarm on. Call light within reach. Will continue to monitor until endorsed to AM nurse.
[2019-09-21 06:19] LABS: INR 1.1 (0.80-1.20); PROTHROMBIN TIME 11.5 SECS (9.5-12.5)
[2019-09-21 06:27] LABS: BASOPHILS % (AUTO) 1.2 % (0.0-2.0); EOSINOPHILS # (AUTO) 0.1 K/uL (0.0-0.4); EOSINOPHILS % (AUTO) 3.7 % (0.0-4.0); HEMATOCRIT 36.2 % (36-54); HEMOGLOBIN 12.1 g/dL (14.0-18.0); LYMPHOCYTES # (AUTO) 0.4 K/uL (1.0-5.5); LYMPHOCYTES % (AUTO) 11.3 % (20.5-51.5); MEAN CORPUSCULAR HEMOGLOBIN 31 pg (27-31); MEAN CORPUSCULAR HGB CONC 33 % (32-36); MEAN CORPUSCULAR VOLUME 93 fL (79.0-98.0); MONOCYTES # (AUTO) 0.4 K/uL (0.0-1.0); MONOCYTES % (AUTO) 10.1 % (1.7-9.3); NEUTROPHILS # (AUTO) 2.7 K/uL (1.8-7.7); NEUTROPHILS % (AUTO) 73.7 % (40.0-70.0); PLATELET COUNT (AUTO) 132 K/uL (130-430); RED BLOOD CELL COUNT(AUTO) 3.88 MIL/uL (4.2-6.2); RED CELL DISTRIBUTION WIDTH 16.7 % (9.0-15.0); WHITE BLOOD COUNT (AUTO) 3.7 K/uL (4.8-10.8)
[2019-09-21 07:16] LABS: ALANINE AMINOTRANSFERASE 25 U/L (12-78); ALBUMIN 2.7 g/dL (3.4-4.8); ANION GAP 7 (5-15); ASPARTATE AMINOTRANSFERASE 24 U/L (10-37); CALCIUM 7.8 mg/dL (8.4-11.0); CHLORIDE 107 mmol/L (98-107); CREATININE 1.44 mg/dL (0.55-1.30); GLUCOSE 83 mg/dL (70-99); POTASSIUM 3.2 mmol/L (3.5-5.1); SODIUM SERUM 144 mmol/L (136-145); TOTAL BILIRUBIN 0.5 mg/dL (0.0-1.0); UREA NITROGEN, BLOOD 20 mg/dL (8-21)
--- NOTE | 2019-09-21 07:25 | NUR ---
Opening Note Received bedside report from endorsing RN for continuation of care. Received patient awake and resting in bed, denies any pain or SOB. No signs or symptoms of acute distress noted. Bed locked in lowest position, bed alarm on, and call light within reach. Fall and safety precautions in place.
[2019-09-21 08:00] VITALS: BP_SYST 102
[2019-09-21] MEDS: AZITHROMYCIN 500 MG in NS 250 ML IV SCH (08:27)
[2019-09-21] MEDS: cefTRIAXone 1 GM in D5W 50 ML IV SCH (08:27)
[2019-09-21] MEDS: POTASSIUM CHLORIDE 20 MEQ TAB.PRT.SR PO SCH (08:27)
[2019-09-21] MEDS: ATORVASTATIN 20 MG TABLET PO SCH (08:27)
[2019-09-21] MEDS: SERTRALINE HCL 50 MG TABLET PO SCH (08:28)
[2019-09-21] MEDS: TAMSULOSIN HCL 0.4 MG CAP PO SCH (08:28)
[2019-09-21] MEDS: FUROSEMIDE 40 MG TABLET PO SCH (08:28)
[2019-09-21] MEDS: CARVEDILOL 6.25 MG TABLET (COREG) PO SCH ×2 (08:34→22:02)
--- NOTE | 2019-09-21 09:49 | NUR ---
Dr. Tejada at bedside examining patient. No new orders.
--- NOTE | 2019-09-21 10:45 | NUR ---
Thoracentesis Thoracentesis procedure being done at bedside by Dr. Chanel.
--- NOTE | 2019-09-21 11:20 | NUR ---
DC Planning: LVM to pt's spouse/ Sharlene # [phone]. Called to s/w pt's dtr/Angeles # [phone] re dcp to home with HH. She agreed with any assigned agency for disease management and safety eval ,respiratory /equipment teaching PT and IV abx treatment. The pt is sp thoracentesis today, his O2 sat drop and was put on supplement oxygen via [place] per JAYRO Peña. I requested MD orders for RA ABG to determine the home oxygen qualification and PT eval and verify IV abx duration/days needs for HH infusion.
[2019-09-21 12:16] VITALS: BP_SYST 100
--- NOTE | 2019-09-21 12:20 | NUR ---
Patient getting up out of bed and taking off verifying specialist. Patient reoriented to hospital room and bed and education provided to keep verifying specialist on. No signs or symptoms of acute distress noted. Bed locked in lowest position and call light within reach. Fall and safety precautions in place.
--- NOTE | 2019-09-21 13:18 | NUR ---
Home Health set up: Faxing the referral request ,FS,H/P,PT note to [facility] attn Rubin fax# [phone], tel # [phone]. Rubin will arrange the nebulizer machine for the pt. Addendum: 09/21/19 at 1506 by Francis Akins RN Per Rubin, the pt is accepted for [facility] follow up care. He will call back to confirm the nebulizer and medication delivering time. >> Contacted Raegan at [facility] [employer] company # [phone] gave pricing quote for one oxygen concentrator and 2 portable tanks rental cost is $250 first month and $150/month there after. I LVM notify dtr/Angeles, I will f/u if she still wants them. > Per Bernarda/Santa: not providing private order for personal use without prescription [employer] pay. She advised to buy online at [employer] or at [employer]. The information provided to Angeles as well. Addendum: 09/21/19 at 1545 by Francis Akins RN >> S/w Angeles about the home oxygen, so far the pt does not needs to be on oxygen. The pt ambulates on RA independently, no c/o SOB, dizziness. sat 93 % per PT eval note. The pt is not qualified for home oxygen per Medicare guideline. Per Dr. Brown the pt may have the oxygen in case of emergency. The md. will discharge pt today and family may buy the DME later at their convenience.
--- NOTE | 2019-09-21 15:10 | NUR ---
Dietitian Recommendations * Recommend continuing mechanical soft diet LP, RD Please refer to Nutrition Assessment for details. Addendum: 09/21/19 at [address] Amended: Links added. Addendum: 09/21/19 at [address] PLEASE DISREGARD NOTE. ENTERED IN ERROR.
--- NOTE | 2019-09-21 15:11 | NUR ---
Dietitian Recommendations * Recommend continuing mechanical soft diet * Encourage increase PO intakes LP, RD Please refer to Nutrition Assessment for details. Addendum: 09/21/19 at [address] Amended: Links added.
[2019-09-21] MEDS ORDERED: POTASSIUM CHLORIDE 20 MEQ TAB.PRT.SR PO ONE (15:45)
--- NOTE | 2019-09-21 15:51 | NUR ---
Dr. Brown in to see patient. New orders received.
[2019-09-21] MEDS ORDERED: TRAZ-250 PO (16:00)
[2019-09-21] MEDS ORDERED: AZIT250T PO (16:00)
[2019-09-21] MEDS ORDERED: POTA20TA83 PO (16:00)
[2019-09-21] MEDS ORDERED: TAMS-11 PO (16:00)
[2019-09-21] MEDS ORDERED: CEPH250C PO (16:00)
[2019-09-21] MEDS ORDERED: CARV3.1246 PO (16:00)
[2019-09-21] MEDS ORDERED: LISI2.5T48 PO (16:00)
[2019-09-21] MEDS ORDERED: FURO-150 PO (16:00)
[2019-09-21] MEDS ORDERED: IPRA3AMP9 INH (16:02)
[2019-09-21 16:25] VITALS: BP_SYST 130
[2019-09-21] MEDS: QUEtiapine FUMARATE 25 MG TABLET PO SCH (17:35)
[2019-09-21 17:48] LABS: BODY FLUID TOTAL PROTEIN 2.3 g/dL
--- NOTE | 2019-09-21 17:50 | NUR ---
Dr. De Dios at bedside examining patient. New orders received.
--- NOTE | 2019-09-21 18:49 | NUR ---
Closing Note Patient sitting up in bed, watching TV. Patient denies any SOB or pain at this time. No signs or symptoms of acute distress noted. Will endorse bedside report to oncoming RN using SBAR approach for continuation of care.
--- NOTE | 2019-09-21 19:35 | NUR ---
ROUNDS PATIENT SITTING UP IN THE CHAIR, NOT IN DISTRESS, VITALS STABLE. DENIES ANY PAIN AND DISCOMFORT AT THIS TIME. ASSESSMENT DONE AND DOCUMENTED. SEE FLOWSHEET. NEEDS ATTENDED TO. SAFETY AND FALL MEASURES IN PLACED. CALL LIGHT PLACED WITHIN REACH.
[2019-09-21 20:00] VITALS: BP_SYST 107
--- NOTE | 2019-09-21 21:10 | NUR ---
MEDICATION DUE MEDICATIONS GIVEN SCHEDULED, TOLERATED WELL. WILL CONTINUE TO MONITOR.
[2019-09-21] MEDS: traZODone HCL 50 MG TABLET (DESYREL) PO SCH (22:00)
[2019-09-21] MEDS: MIRTAZAPINE 15 MG TABLET PO SCH (22:00)
[2019-09-21] MEDS: LISINOPRIL 5 MG TABLET PO SCH (22:03)
[2019-09-21 22:59] VITALS: BP_SYST 109
--- NOTE | 2019-09-22 00:15 | NUR ---
ROUNDS PATIENT ASLEEP, NO SOB NOR PAIN AND DISCOMFORT NOTED. WILL CONTINUE TO MONITOR.
--- NOTE | 2019-09-22 02:14 | NUR ---
ROUNDS PATIENT ASLEEP, RESPIRATIONS EVEN AND UNLABORED, WILL CONTINUE TO MONITOR.
--- NOTE | 2019-09-22 04:35 | NUR ---
IV REINSERTION IV REINSERTED ON THE RIGHT FOREARM, G. 20, PATENT, NO SIGNS OF INFILTRATION. WILL CONTINUE TO MONITOR.
--- NOTE | 2019-09-22 06:23 | NUR ---
CLOSING NOTES PATIENT STILL ASLEEP, NO SIGNS OF DISTRESS NOR PAIN AND DISCOMFORT NOTED. ALL NEEDS ATTENDED TO. SAFETY MEASURES MAINTAINED. CALL LIGHT PLACED WITHIN REACH.
[2019-09-22 06:56] LABS: BASOPHILS # (AUTO) 0.1 K/uL (0.0-0.2); BASOPHILS % (AUTO) 1.4 % (0.0-2.0); EOSINOPHILS # (AUTO) 0.2 K/uL (0.0-0.4); EOSINOPHILS % (AUTO) 4.5 % (0.0-4.0); HEMATOCRIT 37.9 % (36-54); HEMOGLOBIN 12.3 g/dL (14.0-18.0); LYMPHOCYTES # (AUTO) 0.4 K/uL (1.0-5.5); LYMPHOCYTES % (AUTO) 11.8 % (20.5-51.5); MEAN CORPUSCULAR HEMOGLOBIN 31 pg (27-31); MEAN CORPUSCULAR HGB CONC 32 % (32-36); MEAN CORPUSCULAR VOLUME 94 fL (79.0-98.0); MONOCYTES # (AUTO) 0.4 K/uL (0.0-1.0); MONOCYTES % (AUTO) 9.5 % (1.7-9.3); NEUTROPHILS # (AUTO) 2.8 K/uL (1.8-7.7); NEUTROPHILS % (AUTO) 72.8 % (40.0-70.0); PLATELET COUNT (AUTO) 128 K/uL (130-430); RED BLOOD CELL COUNT(AUTO) 4.03 MIL/uL (4.2-6.2); RED CELL DISTRIBUTION WIDTH 16.7 % (9.0-15.0); WHITE BLOOD COUNT (AUTO) 3.8 K/uL (4.8-10.8)
[2019-09-22 07:09] LABS: ANION GAP 4 (5-15); CHLORIDE 104 mmol/L (98-107); CREATININE 1.24 mg/dL (0.55-1.30); GLUCOSE 88 mg/dL (70-99); POTASSIUM 3.6 mmol/L (3.5-5.1); SODIUM SERUM 138 mmol/L (136-145); UREA NITROGEN, BLOOD 25 mg/dL (8-21)
--- NOTE | 2019-09-22 07:42 | NUR ---
Opening Note received bedside SBAR report from upholstery covers inspector RN, patient resting in bed, respirations even and unlabored on room air, no acute distress noted, room close to nurses station, educated patient on use of call light and asked to call for assistance, patient verbalized understanding, call light in reach, bed in low and locked position, bed alarm on.
[2019-09-22 08:00] VITALS: BP_SYST 104
[2019-09-22] MEDS: cefTRIAXone 1 GM in D5W 50 ML IV SCH (08:29)
[2019-09-22] MEDS: POTASSIUM CHLORIDE 20 MEQ TAB.PRT.SR PO SCH (08:31)
[2019-09-22] MEDS: TAMSULOSIN HCL 0.4 MG CAP PO SCH (08:31)
[2019-09-22] MEDS: SERTRALINE HCL 50 MG TABLET PO SCH (08:31)
[2019-09-22] MEDS: ATORVASTATIN 20 MG TABLET PO SCH (08:31)
[2019-09-22] MEDS: LISINOPRIL 5 MG TABLET PO SCH (09:00)
[2019-09-22] MEDS: CARVEDILOL 6.25 MG TABLET (COREG) PO SCH (09:00)
[2019-09-22] MEDS ORDERED: FUROSEMIDE 20 MG TABLET PO SCH (09:00)
--- NOTE | 2019-09-22 09:47 | NUR ---
Nebulizer and medications: Rex Fuller at [facility] works with [employer] : the machine plus meds were delivered to pt home yesterday. Alina # [phone]. Dr. Brown signed DME order from [facility] to # [phone].
--- NOTE | 2019-09-22 10:06 | NUR ---
MD HAND [AGED JEFFREY DOOLEY AT [phone] SPOKE WITH PEGGY.
--- NOTE | 2019-09-22 10:33 | NUR ---
Sitter patient walking around hospital, patient non compliant with staying on unit, patient attempting to exit building, educated patient on patient safety, patient verbalized understanding, patient sitting in bedside chair, sitter at bedside.
--- NOTE | 2019-09-22 10:57 | NUR ---
Physician Rounds Dr. Brown at bedside examining patient.
--- NOTE | 2019-09-22 12:14 | NUR ---
Discharge planning per Dr. Kevin coppola to discharge patient after CT chest is taken, no need to wait for results of CT chest, called patients Sharlene and daughter Angeles regarding discharge home, unable to reach family at this time, left message, awaiting call back.
[2019-09-22 12:24] VITALS: BP_SYST 136
--- NOTE | 2019-09-22 13:05 | NUR ---
Spoke with Patients spoke with patients Sharlene, informed her of discharge order, per Sharlene she will be in to shrimp picker the patient for discharge home with home health, informed patient, patient verbalized understanding
[2019-09-22 13:20] VITALS: BP_SYST 111
--- NOTE | 2019-09-22 13:51 | NUR ---
Follow up rotary shear operator appointment made follow up rotary shear operator appointment with Dr. Tejada for September 29, 2019 at 11:00am, informed patient, patient verbalized understanding.
--- NOTE | 2019-09-22 14:25 | NUR ---
Discharge provided patient and patients with discharge packet and instructions, informed them of follow up lead carpenter appointment, understanding verbalized, IV catheter removed, catheter intact, no bleeding, steady gait noted, no acute distress noted, respirations even and unlabored on room air, all belongings sent with patient, patient accompanied by Sharlene for discharge home, patient taken to parking lot via wheelchair.
[2019-09-22] MEDS ORDERED: QUEtiapine FUMARATE 25 MG TABLET PO SCH (21:00)
== END 2019-09-22 14:25 | disposition home health service (06) | DRG 291 ==
LOC: SED 16:33 → EEVIPCON 18:43 → STU 18:43
PROVIDERS: ADMIT Internal Medicine; ATTEND Internal Medicine
PROC: 0W993ZZ Drainage of Right Pleural Cavity, Percutaneous Approach (ICD-10-PCS; principal; 2019-09-21)
DX: I11.0 Hypertensive heart disease with heart failure (principal); N17.0 Acute kidney failure with tubular necrosis; J18.9 Pneumonia, unspecified organism; J96.00 Acute respiratory failure, unspecified whether with hypoxia or hypercapnia; R65.11 Systemic inflammatory response syndrome (SIRS) of non-infectious origin with acute organ dysfunction; J44.0 Chronic obstructive pulmonary disease with (acute) lower respiratory infection; J44.1 Chronic obstructive pulmonary disease with (acute) exacerbation; F23 Brief psychotic disorder; E44.1 Mild protein-calorie malnutrition; G93.40 Encephalopathy, unspecified; J91.8 Pleural effusion in other conditions classified elsewhere; I50.43 Acute on chronic combined systolic (congestive) and diastolic (congestive) heart failure; Z20.828 Contact with and (suspected) exposure to other viral communicable diseases; E03.9 Hypothyroidism, unspecified; E78.5 Hyperlipidemia, unspecified; F10.20 Alcohol dependence, uncomplicated; E87.6 Hypokalemia; F03.90 Unspecified dementia, unspecified severity, without behavioral disturbance, psychotic disturbance, mood disturbance, and anxiety; F32.9 Major depressive disorder, single episode, unspecified; F41.9 Anxiety disorder, unspecified; I34.0 Nonrheumatic mitral (valve) insufficiency; Z79.899 Other long term (current) drug therapy; Z85.028 Personal history of other malignant neoplasm of stomach; Z85.038 Personal history of other malignant neoplasm of large intestine; Z68.24 Body mass index [BMI] 24.0-24.9, adult; Z85.46 Personal history of malignant neoplasm of prostate; Z86.73 Personal history of transient ischemic attack (TIA), and cerebral infarction without residual deficits; Z90.3 Acquired absence of stomach [part of]
CPT/HCPCS: 32555; 36415; 71045; 71250-TC; 76770; 80048; 80053; 80061; 81003; 82947-TC; 83605; 83735-TC; 83880; 84100-TC; 84157-TC; 84439; 84443-TC; 84484; 85025; 85610-TC; 85730-TC; 87040-TC; 88108; 93005; 93306; 96365; 96375; 99291; C1729; G0378; J0456; J0696; J1200; J1630; J1940; J1956; J3370; J7050; J7060; U0002

== ENCOUNTER 2019-09-23 10:43 | Inpatient (IN) | payer OTHER, MEDICARE ==
[~2019-09-23] VITALS: Ht 185.4 cm; Wt 68.5 kg
[2019-09-23 10:43] VITALS: BP_SYST 111
[~2019-09-23 10:43] MED LIST changes: +AZIT250T PO; +CARV3.1246 PO; +CEPH250C PO; +FURO-150 PO; +IPRA3AMP9 INH; +LISI2.5T48 PO; +POTA20TA83 PO; +TAMS-11 PO; +TRAZ-250 PO
--- NOTE | 2019-09-23 10:43 | NUR ---
Patient to ER bed 1 to gown for evaluation. Side rails up.
--- NOTE | 2019-09-23 10:45 | NUR ---
Pt BIB ambulance, family reports he was found face down. Pt d/c'd from hospital yesterday. Pt is awake but confused and disoriented. Resting in bed, will continue to monitor
--- NOTE | 2019-09-23 10:50 | NUR ---
CXR performed at bedside as ordered by
--- NOTE | 2019-09-23 10:55 | NUR ---
Lab at bedside, drawing blood as per orders
[2019-09-23] MEDS ORDERED: cefTRIAXone 500 MG in D5W 50 ML IV ONE (11:00)
--- NOTE | 2019-09-23 11:00 | NUR ---
Urine collected via straight cath as ordered by , Pt tolerated well.
--- NOTE | 2019-09-23 11:00 | NUR ---
Blood cultures collected x2, one set @ 1100 second set @ 1110
--- NOTE | 2019-09-23 11:00 | NUR ---
Rocephin and Ativan administered as ordered by .
--- NOTE | 2019-09-23 11:10 | NUR ---
EKG performed at bedside by RN, given to MD for interpretation
[2019-09-23 11:15] LABS: BASOPHILS % (AUTO) 0.9 % (0.0-2.0); EOSINOPHILS # (AUTO) 0.1 K/uL (0.0-0.4); EOSINOPHILS % (AUTO) 2.8 % (0.0-4.0); HEMATOCRIT 38.3 % (36-54); HEMOGLOBIN 12.3 g/dL (14.0-18.0); LYMPHOCYTES # (AUTO) 0.5 K/uL (1.0-5.5); LYMPHOCYTES % (AUTO) 12.4 % (20.5-51.5); MEAN CORPUSCULAR HEMOGLOBIN 31 pg (27-31); MEAN CORPUSCULAR HGB CONC 32 % (32-36); MEAN CORPUSCULAR VOLUME 95 fL (79.0-98.0); MONOCYTES # (AUTO) 0.4 K/uL (0.0-1.0); MONOCYTES % (AUTO) 9.5 % (1.7-9.3); NEUTROPHILS % (AUTO) 74.4 % (40.0-70.0); PLATELET COUNT (AUTO) 119 K/uL (130-430); RED BLOOD CELL COUNT(AUTO) 4.04 MIL/uL (4.2-6.2); RED CELL DISTRIBUTION WIDTH 17.1 % (9.0-15.0)
--- NOTE | 2019-09-23 11:18 | NUR ---
Phonecall received from naomie Marcos Jr. with callback number [phone] to inquire about further information or to communicate status updates.
[2019-09-23 11:30] LABS: BILIRUBIN,URINE NEGATIVE (NEGATIVE); BLOOD, URINE NEGATIVE (NEGATIVE); CLARITY/URINE CLEAR (CLEAR); COLOR,URINE YELLOW (YELLOW); GLUCOSE,URINE NEGATIVE (NEGATIVE); KETONES,URINE NEGATIVE (NEGATIVE); LEUKOCYTE ESTERASE ,URINE NEGATIVE (NEGATIVE); NITRITE, URINE NEGATIVE (NEGATIVE); PROTEIN URINE NEGATIVE (NEGATIVE); UROBILINOGEN,URINE 0.2 (0.2-1.0)
[2019-09-23] MEDS ORDERED: LORazepam 2 MG/ML VIAL IVP ONE ×2 (11:30→12:00)
[2019-09-23 11:31] LABS: ANION GAP 4 (5-15); CALCIUM 7.8 mg/dL (8.4-11.0); CHLORIDE 104 mmol/L (98-107); CREATININE 1.09 mg/dL (0.55-1.30); GLUCOSE 108 mg/dL (70-99); SODIUM SERUM 137 mmol/L (136-145); UREA NITROGEN, BLOOD 19 mg/dL (8-21)
[2019-09-23 11:36] LABS: ALANINE AMINOTRANSFERASE 26 U/L (12-78); ALBUMIN 2.9 g/dL (3.4-4.8); ALCOHOL, BLOOD 37 mg/dL (<10); ASPARTATE AMINOTRANSFERASE 29 U/L (10-37); TOTAL BILIRUBIN 0.4 mg/dL (0.0-1.0)
[2019-09-23] MEDS ORDERED: cefTRIAXone 250 MG VIAL ONE (11:53)
--- NOTE | 2019-09-23 12:24 | NUR ---
Pt to CT scan
--- NOTE | 2019-09-23 12:51 | NUR ---
Belongings list completed
--- NOTE | 2019-09-23 13:00 | NUR ---
Spoke with [place], daughter regarding patient admission
--- NOTE | 2019-09-23 13:16 | NUR ---
Received admitting orders from Dr. Howell
--- NOTE | 2019-09-23 13:17 | NUR ---
Called Mei to request med-surg bed, stated she will call us back.
--- NOTE | 2019-09-23 13:31 | NUR ---
Called for a Med Surg bed again. Spoke w/ Mei. Waiting for a bed assignment
--- NOTE | 2019-09-23 13:40 | NUR ---
Patient will be admitted to care of Dr. Howell. Admitted to Med Surg unit. Will go to room 112-a. Belongings list completed. Complete and up to date summary report printed. SBAR report to be given at bedside with opportunity for questions. Bedside report to be given. IV is on the LAC 20g patent and infusing well.
[2019-09-23 13:52] VITALS: BP_SYST 103
--- NOTE | 2019-09-23 13:52 | NUR ---
ADMISSION NOTE Received patient from ER via deep, received report from [facility]. Patient admitted with diagnosis of PNEUMONIA. Patient oriented to hospital routine, call light, toileting and safety-patient verbalized understanding.
--- NOTE | 2019-09-23 13:53 | NUR ---
CONSULTATION PAGED REASON FOR CONSULTATION:PNEUMONIA WAS CONSULT CALLED?Y PERSON WHO WAS NOTIFIED:PAGED DRs PAGER CONSULTING PHYSICIAN:VINCENT BAÑUELOS BAG WASHER SPECIALTY:PULMONARY BAG WASHER PHONE NUMBER:[phone] REQUESTING PHYSICIAN:GERARDO GOODMAN
--- NOTE | 2019-09-23 13:57 | NUR ---
LACE FINISHER CALLED SPOKE WITH VINCENT BAÑUELOS SHE INFORMED ME THAT WILL COME AND SEE THE PATIENT TODAY.
[2019-09-23] MEDS ORDERED: MUPIROCIN 2% TOPICAL OINTMENT 22 GM NS PRN (14:15)
[2019-09-23] MEDS ORDERED: DOCUSATE SODIUM 100 MG CAPSULE PO PRN (14:15)
[2019-09-23] MEDS ORDERED: ACETAMINOPHEN 325 MG TABLET PO PRN (14:15)
[2019-09-23] MEDS ORDERED: ZOLPIDEM TARTRATE 5 MG TABLET PO PRN (14:15)
[2019-09-23] MEDS ORDERED: POTASSIUM CHLORIDE 20 MEQ TAB.PRT.SR PO PRN (14:15)
[2019-09-23] MEDS ORDERED: MORPHINE SULFATE 10 MG/ML VIAL IVP PRN ×2 (14:15)
[2019-09-23] MEDS ORDERED: ONDANSETRON HCL 4 MG/2 ML VIAL IVP PRN (14:15)
[2019-09-23] MEDS ORDERED: MAGNESIUM SULFATE 50 ML IV PRN (14:15)
[2019-09-23 14:22] VITALS: BP_SYST 103
[2019-09-23] MEDS ORDERED: PIPERACILLIN/TAZO 3.375/DEX-IS 50 ML IV ONE (15:00)
[2019-09-23] MEDS: D5NS 1,000 ML IV SCH (15:11)
--- NOTE | 2019-09-23 15:13 | NUR ---
CONSULTATION PAGED REASON FOR CONSULTATION:CHF WAS CONSULT CALLED?Y PERSON WHO WAS NOTIFIED:SINTIA CONSULTING PHYSICIAN:ALLYSSA [place] TIME LOCK EXPERT SPECIALTY:CARDIO TIME LOCK EXPERT PHONE NUMBER:[phone] REQUESTING PHYSICIAN:GERARDO GOODMAN
--- NOTE | 2019-09-23 15:15 | NUR ---
SWALLOW/ORAL EVAL PROFESSIONAL SPEECH SERVICES CALLED LEFT A VOICEMAIL WITH
[2019-09-23 16:00] VITALS: BP_SYST 105
--- NOTE | 2019-09-23 16:15 | NUR ---
US CAROTID BILATERAL Unable to do US carotid bilateral due to patient keep move the neck even holding the head, the patient non stop moving. Will do it tomorrow morning.
--- NOTE | 2019-09-23 17:50 | NUR ---
SEEN BY AURELIA CASTELAN.
--- NOTE | 2019-09-23 18:13 | NUR ---
SECOND LACTIC ACID=3.[address] Howell [facility], reported to Dr. Howell, the patient's first lactic acid=1.7, the second one is 3.0. Dr. Howell with the order of ID consult Macarena Pineda for sepsis/pneumonia and repeat Lactic acid tomorrow morning.
--- NOTE | 2019-09-23 18:50 | NUR ---
CLOSING NOTE Patient resting in the bed. No acute distress. Skin warm and dry to touch. IV intact to RAC, no redness, no swelling, no drainage. On D5 NS at 40ml/hr, infusing well. All needs met. Safety measure maintained. Call light within reached. Bed locked in low position, side rails up, bed alarm on. Will endorse to night nurse.
--- NOTE | 2019-09-23 19:50 | NUR ---
Opening notes Pt asleep, easily awakens, confused. IV R. arm pulled out, bleeding controlled with 4x4 gauze. Pt removes O2, frequent re-orientation needed. Safety maintained. Bed low, locked, siderails up, bed alarm on. Call light within reach. To monitor.
--- NOTE | 2019-09-23 19:51 | NUR ---
CONSULTATION PAGED/CALLED Reason for Consultation: SEPSIS / PNA Person Who was Notified: FARA Consulting Physician: CHARLES Excavating Machine Operator Specialty: ID Ordering Physician: MIL
[2019-09-23 20:00] VITALS: BP_SYST 121
--- NOTE | 2019-09-23 20:00 | NUR ---
IV INSERTION 20G IV INSERTED INTO RIGHT FOREARM. IV FLUSHES WELL. NO SIGNS OR SYMPTOMS OF INFILTRATION. PT TOLERATED PROCEDURE WELL. WILL CONTINUE TO MONITOR.
[2019-09-23] MEDS: IPRATROPIUM/ALBUTEROL SULFATE 3 ML AMPUL.NEB (DUONEB) INH SCH (20:23)
[2019-09-23] MEDS: CARVEDILOL 3.125 MG TABLET (COREG) PO SCH (20:47)
[2019-09-23] MEDS: MIRTAZAPINE 15 MG TABLET PO SCH (20:47)
[2019-09-23] MEDS: HEPARIN SODIUM,PORCINE 5000 UNITS/ML VIAL SUBCUT SCH (20:48)
[2019-09-23] MEDS ORDERED: traZODone HCL 50 MG TABLET (DESYREL) PO SCH (21:00)
--- NOTE | 2019-09-23 22:30 | NUR ---
Moved to Rm 113-A Pt awake, confused, attempting to get out of bed. Re-oriented pt to surrounding. Pt moved to Rm 113-A to be monitored near nursing station. All belongings with pt. Bed low, locked, siderails up, alarm on. To monitor.
[2019-09-24 00:05] VITALS: BP_SYST 130
--- NOTE | 2019-09-24 00:20 | NUR ---
Rounds Pt asleep, easily awaken, VSS. No s/s distress noted. IVF/antibiotic infusing at ordered rate R. FA 20G. Bed low, locked, siderails up, alarm on. Pt near nursing station for safety. Will continue to monitor pt.
[2019-09-24] MEDS: PIPERACILLIN/TAZO 3.375/DEX-IS 50 ML IV SCH ×3 (00:27→11:18)
[2019-09-24] MEDS: LORazepam 2 MG/ML VIAL IVP PRN ×2 (02:12→22:31)
--- NOTE | 2019-09-24 02:12 | NUR ---
Ativan Pt awake, confused trying to get out of bed. Ativan 1mg IVP administered as needed. Safety maintained. Pt was incontinent of urine and was just cleaned. Will continue to monitor pt.
--- NOTE | 2019-09-24 04:30 | NUR ---
Rounds Pt asleep, no s/s distress or discomfort noted. Pt kicks blanket off. IVF infusing at ordered rate R. FA no s/s infiltration. Call light within reach. Bed low, locked, siderails up x4, alarm on. Pt safety maintained. To monitor.
--- NOTE | 2019-09-24 06:30 | NUR ---
Closing notes Pt asleep, respirations even and unlabored. O2 sat 94-96% on 2L via nasal cannula. IVF/antibiotic infusing at ordered rate R. FA 20G no s/s infiltration. Pt awaiting swallow eval. Call light within reach. Bed low, locked, siderails up, bed alarm on. Pt near nursing station to be monitored safely. To endorse to AM nurse.
[2019-09-24 06:44] LABS: BASOPHILS % (AUTO) 0.9 % (0.0-2.0); EOSINOPHILS % (AUTO) 1.2 % (0.0-4.0); HEMATOCRIT 37.4 % (36-54); HEMOGLOBIN 12.3 g/dL (14.0-18.0); LYMPHOCYTES # (AUTO) 0.4 K/uL (1.0-5.5); LYMPHOCYTES % (AUTO) 8.7 % (20.5-51.5); MEAN CORPUSCULAR HEMOGLOBIN 31 pg (27-31); MEAN CORPUSCULAR HGB CONC 33 % (32-36); MEAN CORPUSCULAR VOLUME 93 fL (79.0-98.0); MONOCYTES # (AUTO) 0.4 K/uL (0.0-1.0); MONOCYTES % (AUTO) 8.7 % (1.7-9.3); NEUTROPHILS # (AUTO) 3.3 K/uL (1.8-7.7); NEUTROPHILS % (AUTO) 80.5 % (40.0-70.0); PLATELET COUNT (AUTO) 127 K/uL (130-430); RED BLOOD CELL COUNT(AUTO) 4.01 MIL/uL (4.2-6.2)
[2019-09-24 06:46] LABS: ANION GAP 5 (5-15); CHLORIDE 103 mmol/L (98-107); CREATININE 1.19 mg/dL (0.55-1.30); GLUCOSE 163 mg/dL (70-99); POTASSIUM 3.9 mmol/L (3.5-5.1); SODIUM SERUM 136 mmol/L (136-145); UREA NITROGEN, BLOOD 20 mg/dL (8-21)
--- NOTE | 2019-09-24 07:20 | NUR ---
INITIAL NOTE PT RESTING IN BED, NO ACUTE DISTRESS NOTED, BREATHING EVEN AND UNLABORED. PT ON 2L NC, SATURATING AT 94%. IVF INFUSING WELL. CALL LIGHT WITHIN REACH, BED IN LOW AND LOCKED POSITION WITH BED ALARM ON.
[2019-09-24 08:00] VITALS: BP_SYST 128
--- NOTE | 2019-09-24 08:33 | NUR ---
DR. MIL LORENZO AT BEDSIDE EXAMINING PT, INFORMED MD THAT PT IS NPO AND SCHEDULED FOR SWALLOW EVALUATION TODAY. PT'S SON AND DAUGHTER CALLED THIS MORNING FOR AN UPDATE, INFORMED MD THAT FAMILY IS INVOLVED IN PT CARE. NEW ORDERS RECEIVED BY , ONCE SWALLOW EVAL IS DONE PLACE PT ON CARDIAC DIET AND ADD RECOMMENDATIONS FROM SWALLOW EVAL. VERIFIED WITH READ BACK.
[2019-09-24] MEDS ORDERED: SERTRALINE HCL 50 MG TABLET PO SCH (09:00)
[2019-09-24] MEDS: ATORVASTATIN 20 MG TABLET PO SCH (09:03)
[2019-09-24] MEDS: FUROSEMIDE 40 MG/4 ML VIAL IVP SCH (09:03)
[2019-09-24] MEDS: SERTRALINE HCL 50 MG TABLET PO SCH (09:04)
[2019-09-24] MEDS: TAMSULOSIN HCL 0.4 MG CAP PO SCH (09:04)
[2019-09-24] MEDS: CARVEDILOL 3.125 MG TABLET (COREG) PO SCH ×2 (09:04→21:10)
[2019-09-24] MEDS: HEPARIN SODIUM,PORCINE 5000 UNITS/ML VIAL SUBCUT SCH ×2 (09:06→21:14)
--- NOTE | 2019-09-24 09:30 | NUR ---
INCONTINENT OF BOWEL AND BLADDER DISPENSING AND MEASURING OPTICIAN JOSE DANIEL, CHANGED PT. ASSISTED WITH REPOSITIONING. PT TOLERATED WELL.
--- NOTE | 2019-09-24 10:07 | NUR ---
Nutrition Update Landon Scale 14 noted. Pt admitted for pneumonia. Diet: N/A BMI: 23.5 kg/m2 RD to follow per nutrition care standards.
--- NOTE | 2019-09-24 11:30 | NUR ---
RN ROUNDS PT RESTING, NO CHANGE IN ASSESSMENT. WILL CONTINUE MONITOR.
[2019-09-24 12:00] VITALS: BP_SYST 102
--- NOTE | 2019-09-24 13:30 | NUR ---
RN ROUNDS NO CHANGE IN ASSESSMENT, WILL CONTINUE TO MONITOR.
--- NOTE | 2019-09-24 15:29 | NUR ---
RN ROUNDS PT RESTING, REMAINS ON 2L NC, SATURATING 95%. NO CHANGE IN ASSESSMENT, WILL CONTINUE TO MONITOR.
[2019-09-24] MEDS: IPRATROPIUM/ALBUTEROL SULFATE 3 ML AMPUL.NEB (DUONEB) INH SCH ×2 (16:06→20:34)
[2019-09-24 16:34] VITALS: BP_SYST 123
[2019-09-24] MEDS: D5NS 1,000 ML IV SCH (17:50)
[2019-09-24] MEDS: CEFEPIME 0.5 GM in D5W 50 ML IV SCH (17:51)
--- NOTE | 2019-09-24 17:51 | NUR ---
S.T. SWALLOW EVAL SWALLOW EVAL COMPLETED. PT PRESENTS W/ ML-MOD ORAL DYSPHAGIA W/ PROLONGED MASTICATION. SWALLOW WAS TIMELY W/ NO S/S OF ASPIRATION. REC: MECH SOFT FINELY CHOPPED DIET. THIN LIQUIDS OK. NURSE HAI NOTIFIED.
--- NOTE | 2019-09-24 17:51 | NUR ---
SWALLOW EVAL PT AWAKE, RADHA AT BEDSIDE. PT COOPERATING WELL.
--- NOTE | 2019-09-24 18:26 | NUR ---
CLOSING NOTE PT AWAKE, EATING DINNER, TOLERATING WELL. PT ON 2L NC, SATURATING AT 94%. IVF INFUSING WELL. CALL LIGHT WITHIN REACH, BED IN LOW AND LOCKED POSITION WITH BED ALARM ON. ALL NEEDS MET THROUGHOUT SHIFT. WILL CONTINUE TO MONITOR UNTIL PT CARE IS ENDORSED TO OUTSIDE SALES CONSULTANT RN.
--- NOTE | 2019-09-24 19:30 | NUR ---
OPENING NOTES RECEIVED SBAR REPORT FROM DAY SHIFT RN. PT RESTING IN BED. NO S/S OF ACUTE DISTRESS NOTED, BREATHING EVEN AND UNLABORED. PT ON 2L NC, SATURATING AT 93%. IVF RUNNING ORDERED RATE. CALL LIGHT WITHIN REACH, BED IN LOW AND LOCKED POSITION WITH BED ALARM ON. SAFETY AND FALL PRECAUTIONS IN PLACE. WILL CONTINUE TO MONITOR.
[2019-09-24 20:00] VITALS: BP_SYST 106
[2019-09-24] MEDS: MIRTAZAPINE 15 MG TABLET PO SCH (21:10)
--- NOTE | 2019-09-24 21:10 | NUR ---
MEDICATION PASS SCHEDULED MEDICATIONS ADMINISTERED. DISCUSSED MEDICATIONS ACTION AND POTENTIAL SIDE EFFECTS. PT CONFUSED. NO S/S OF ACUTE DISTRESS NOTED AT THIS TIME. BREATHING EVEN AND UNLABORED TO O2 VIA NC AT 2L. CLOSE TO NURSING STATION. SIDE RAILS X3. SITTER PRESENT. SAFETY PRECAUTIONS IN PLACE. WILL CONTINUE TO MONITOR.
--- NOTE | 2019-09-24 22:31 | NUR ---
ATIVAN PT WAS TRYING TO GET OUT OF BED AND VERY AGITATED. ADMINISTERED ATIVAN ORDERED PRN. PT TOLERATING WELL. NO S/S OF PAIN OR SHORTNESS OF BREATH. SITTER PRESENT. SIDE RAILS X3. BED ALARM ON, BED LOCKED IN LOWEST POSITION. SAFETY PRECAUTIONS MAINTAINED. WILL MONITOR.
[2019-09-24 23:08] VITALS: BP_SYST 128
--- NOTE | 2019-09-25 00:45 | NUR ---
RN ROUNDS PT RESTING IN BED WITH EYES CLOSED. ABLE TO SEE RISE AND FALL RESPIRATIONS. NO SIGNS AND SYMPTOMS OF DISTRESS NOTED. IVF RUNNING ORDERED RATE. SITTER PRESENT. SIDE RAILS X3. BED LOCKED IN LOWEST POSITION. SAFETY AND FALL PRECAUTIONS IN PLACE. WILL CONTINUE TO MONITOR.
--- NOTE | 2019-09-25 02:51 | NUR ---
SLEEPING PT SLEEPING, ABLE TO SEE RISE AND FALL RESPIRATIONS. NO S/S OF ACUTE DISTRESS NOTED AT THIS TIME. BREATHING UNLABORED TO O2 VIA NC AT 2L. BED ALARM ON, LOCKED IN LOW. SIDE RAILS X3. SITTER AT BEDSIDE. SAFETY AND ASPIRATION PRECAUTIONS IN PLACE. WILL CONTINUE TO MONITOR.
[2019-09-25] MEDS ORDERED: CEFEPIME 1 GM/VIAL (MAXIPIME) ONE (04:46)
[2019-09-25] MEDS: CEFEPIME 0.5 GM in D5W 50 ML IV SCH ×2 (05:10→16:07)
--- NOTE | 2019-09-25 05:10 | NUR ---
HUNG MAXIPIME HUNG MAXIPIME ORDERED RATE. PT TOLERATING WELL. NO S/S OF ACUTE DISTRESS NOTED AT THIS TIME. BREATHING UNLABORED TO O2 VIA NC AT 2L. BED ALARM ON, LOCKED IN LOW. CLOSE TO NURSING STATION. SITTER AT BEDSIDE. SAFETY PRECAUTIONS IN PLACE. WILL CONTINUE TO MONITOR.
[2019-09-25 06:16] LABS: BASOPHILS # (AUTO) 0.1 K/uL (0.0-0.2); BASOPHILS % (AUTO) 1.7 % (0.0-2.0); EOSINOPHILS # (AUTO) 0.2 K/uL (0.0-0.4); EOSINOPHILS % (AUTO) 5.9 % (0.0-4.0); HEMATOCRIT 41.1 % (36-54); HEMOGLOBIN 13.5 g/dL (14.0-18.0); LYMPHOCYTES # (AUTO) 0.5 K/uL (1.0-5.5); LYMPHOCYTES % (AUTO) 14.3 % (20.5-51.5); MEAN CORPUSCULAR HEMOGLOBIN 31 pg (27-31); MEAN CORPUSCULAR HGB CONC 33 % (32-36); MEAN CORPUSCULAR VOLUME 93 fL (79.0-98.0); MONOCYTES # (AUTO) 0.5 K/uL (0.0-1.0); MONOCYTES % (AUTO) 14.2 % (1.7-9.3); NEUTROPHILS # (AUTO) 2.3 K/uL (1.8-7.7); NEUTROPHILS % (AUTO) 63.9 % (40.0-70.0); PLATELET COUNT (AUTO) 131 K/uL (130-430); RED BLOOD CELL COUNT(AUTO) 4.41 MIL/uL (4.2-6.2); RED CELL DISTRIBUTION WIDTH 16.5 % (9.0-15.0); WHITE BLOOD COUNT (AUTO) 3.6 K/uL (4.8-10.8)
--- NOTE | 2019-09-25 06:19 | NUR ---
CLOSING NOTES PT RESTING IN BED. NO S/S OF ACUTE DISTRESS NOTED, BREATHING EVEN AND UNLABORED. PT ON 2L NC. IVF RUNNING ORDERED RATE. CALL LIGHT WITHIN REACH, BED IN LOW AND LOCKED POSITION WITH BED ALARM ON. SAFETY AND FALL PRECAUTIONS IN PLACE. WILL CONTINUE TO MONITOR UNTIL ENDORSE TO DAY SHIFT RN.
[2019-09-25 06:26] LABS: ANION GAP 3 (5-15); CHLORIDE 103 mmol/L (98-107); CREATININE 1.19 mg/dL (0.55-1.30); GLUCOSE 116 mg/dL (70-99); POTASSIUM 3.4 mmol/L (3.5-5.1); SODIUM SERUM 138 mmol/L (136-145); UREA NITROGEN, BLOOD 17 mg/dL (8-21)
[2019-09-25 08:00] VITALS: BP_SYST 129
[2019-09-25] MEDS: ATORVASTATIN 20 MG TABLET PO SCH (08:11)
[2019-09-25] MEDS: CARVEDILOL 3.125 MG TABLET (COREG) PO SCH ×2 (08:11→21:21)
[2019-09-25] MEDS: FUROSEMIDE 40 MG/4 ML VIAL IVP SCH (08:12)
[2019-09-25] MEDS: SERTRALINE HCL 50 MG TABLET PO SCH (08:12)
[2019-09-25] MEDS: TAMSULOSIN HCL 0.4 MG CAP PO SCH (08:12)
[2019-09-25] MEDS: HEPARIN SODIUM,PORCINE 5000 UNITS/ML VIAL SUBCUT SCH ×2 (08:13→21:23)
[2019-09-25] MEDS: IPRATROPIUM/ALBUTEROL SULFATE 3 ML AMPUL.NEB (DUONEB) INH SCH ×3 (08:28→23:10)
--- NOTE | 2019-09-25 08:45 | NUR ---
DR. JAEGER SPOKE WITH MD AT NURSES STATION, INFORMED MD THAT PT IS LESS LETHARGIC TODAY, PT IS COOPERATIVE AND FOLLOWS COMMANDS, PT REMAINS CONFUSED. MD TO CONTINUE CURRENT PLAN OF CARE, POSSIBLE DCP TO SNF.
--- NOTE | 2019-09-25 09:30 | NUR ---
RN ROUNDS PT SITTING UP AND EATING BREAKFAST. PT STILL CONFUSED, RESPONDS TO NAME AND IS FOLLOWING COMMANDS. MORNING MEDICATIONS ADMINISTERED, PT TOLERATED WELL.
--- NOTE | 2019-09-25 11:30 | NUR ---
RN ROUNDS PT RESTING IN BED, NO CHANGE IN ASSESSMENT, WILL CONTINUE TO MONITOR.
[2019-09-25 12:16] VITALS: BP_SYST 95
--- NOTE | 2019-09-25 12:40 | NUR ---
DR. TAVARES SPOKE WITH MD AT NURSE STATION, INFORMED MD THAT PT HAS BEEN DOING BETTER AND REMAINS ON 2L NC SATING AT 99%. MD TO CONTINUE CURRENT PLAN OF CARE.
--- NOTE | 2019-09-25 13:30 | NUR ---
RN ROUNDS PT RESTING, NO CHANGE IN ASSESSMENT. WILL CONTINUE TO MONITOR.
[2019-09-25] MEDS: D5NS 1,000 ML IV SCH (14:35)
--- NOTE | 2019-09-25 15:30 | NUR ---
RN ROUNDS PT AWAKE, RESTING IN BED, WATCHING TELEVISION. NO CHANGE IN ASSESSMENT, WILL CONTINUE TO MONITOR.
[2019-09-25 16:00] VITALS: BP_SYST 123
--- NOTE | 2019-09-25 17:30 | NUR ---
RN ROUNDS PT RESTING AT THIS TIME. NO ACUTE DISTRESS NOTED, BREATHING EVEN AND UNLABORED, WILL CONTINUE TO MONITOR.
--- NOTE | 2019-09-25 18:22 | NUR ---
CLOSING NOTE PT SITTING IN HIGH FOWLERS EATING DINNER INDEPENDENTLY. PT REMAINS ON 2L NC, SATURATING AT 96%. PT REMAINS CONFUSED. NO SIGNS OR SYMPTOMS OF SOB OR ANY ACUTE DISTRESS. IVF INFUSING WELL. CALL LIGHT WITHIN REACH, BED IN LOW AND LOCKED POSITION WITH BED ALARM ON. ALL NEEDS MET THROUGHOUT SHIFT. WILL CONTINUE TO MONITOR UNTIL PT CARE IS ENDORSED TO WATCHGUARD RN.
[2019-09-25 19:00] VITALS: BP_SYST 105
--- NOTE | 2019-09-25 19:15 | NUR ---
change of shift.pt.presents quiescent affect;calm,resting.pt.presents general status stable.respiratory status stable; o2 therapy administered via nasal cannulae.pt.presents iv access intact;patent iv fluids infusing.call light/telephone w/in reach of the pt.
[2019-09-25 20:00] VITALS: BP_SYST 105
--- NOTE | 2019-09-25 20:00 | NUR ---
pt.assessed.v/s assessed values w/in normal limits.pt.presents no c/o pain,nausea.pt.assessed for cleanliness.pt.repositioned. iv access intact;patent iv fluids infusing.general status stable.respiratory status stable;02-sat%=96%.call light/telphone placed w/in reach of the pt.
--- NOTE | 2019-09-25 21:00 | NUR ---
2100pmedications administered.pt.capable to ingest medication w/out difficulty.
[2019-09-25] MEDS: MIRTAZAPINE 15 MG TABLET PO SCH (21:21)
--- NOTE | 2019-09-25 22:00 | NUR ---
pt.assessed.pt.presents quiescent affect;calm,somnolent.pt.assessed for cleanliness.pt.repositioned.no c/o pain,nausea.iv access intact;patent iv fluids infusing.general status stable.respiratory status stable;unlabored;02-sat%=96%.call light/telephone placed w/in reach of the pt.
--- NOTE | 2019-09-26 | NUR ---
p.assessed.pt.presents quiescent affect;calm,somnolent.v/s assessed.values w/in normal limits.no c/o pain,nausea.pt.assessed for cleanliness. pt.repositioned.iv access intact;patent iv fluids infusing.general status stable.respiratory status stable;unlabored.02-sat%=96%.\call light/telephone placed w/in reach of the pt.
[2019-09-26 00:30] VITALS: BP_SYST 91
--- NOTE | 2019-09-26 02:00 | NUR ---
pt.assessed.pt.presents quiescent affect;calm,somnolent.pt.assessed for cleanliness.pt.repositioned.per flacc;pain mgx pt. absent facial grimaces/body posturing.iv access intact patent iv fluids infusing.general status stable.respiratory status stable 02-sat%=96%. call light/telephone placed w/in reach of the pt.
--- NOTE | 2019-09-26 04:00 | NUR ---
pt.assessed.pt.assessed for cleanliness.pt.cleaned pt.repositioned.iv access intact patent iv fluids infusing.no c/o pain,nausea. general status stable.respiratory status stable.02-sat%=96%.call light/telephone placed w/in reach of the pt.
[2019-09-26] MEDS: CEFEPIME 0.5 GM in D5W 50 ML IV SCH ×2 (05:15→17:48)
--- NOTE | 2019-09-26 06:00 | NUR ---
pt.assessed.pt.presents quiescent affect;calm,somnolent.pt.assessed for cleanliness.pt.cleaned repositioned.no c/o pain,nausea. iv access intact;patent iv fluids infusing.general status stable.respiratory status stable;unlabored;02-sat%=96%.call light/telephone placed w/in reach of the pt. Addendum: 09/26/19 at 0620 by Juan Manuel Cha RN i have weighed the pt.2/t chf/lasix.
[2019-09-26 07:07] LABS: BASOPHILS % (AUTO) 1.3 % (0.0-2.0); EOSINOPHILS # (AUTO) 0.2 K/uL (0.0-0.4); EOSINOPHILS % (AUTO) 6.8 % (0.0-4.0); HEMATOCRIT 41.6 % (36-54); HEMOGLOBIN 13.6 g/dL (14.0-18.0); LYMPHOCYTES # (AUTO) 0.5 K/uL (1.0-5.5); LYMPHOCYTES % (AUTO) 15.1 % (20.5-51.5); MEAN CORPUSCULAR HEMOGLOBIN 31 pg (27-31); MEAN CORPUSCULAR HGB CONC 33 % (32-36); MEAN CORPUSCULAR VOLUME 94 fL (79.0-98.0); MONOCYTES # (AUTO) 0.3 K/uL (0.0-1.0); MONOCYTES % (AUTO) 10.1 % (1.7-9.3); NEUTROPHILS # (AUTO) 2.2 K/uL (1.8-7.7); NEUTROPHILS % (AUTO) 66.7 % (40.0-70.0); PLATELET COUNT (AUTO) 148 K/uL (130-430); RED BLOOD CELL COUNT(AUTO) 4.45 MIL/uL (4.2-6.2); RED CELL DISTRIBUTION WIDTH 16.2 % (9.0-15.0); WHITE BLOOD COUNT (AUTO) 3.4 K/uL (4.8-10.8)
[2019-09-26 07:24] LABS: ANION GAP 4 (5-15); CALCIUM 8.5 mg/dL (8.4-11.0); CHLORIDE 104 mmol/L (98-107); CREATININE 1.19 mg/dL (0.55-1.30); GLUCOSE 100 mg/dL (70-99); POTASSIUM 3.7 mmol/L (3.5-5.1); SODIUM SERUM 139 mmol/L (136-145); UREA NITROGEN, BLOOD 16 mg/dL (8-21)
[2019-09-26] MEDS: IPRATROPIUM/ALBUTEROL SULFATE 3 ML AMPUL.NEB (DUONEB) INH SCH ×2 (07:49→20:07)
[2019-09-26 08:00] VITALS: BP_SYST 130
--- NOTE | 2019-09-26 08:00 | NUR ---
ASSUMPTION OF CARE: RECEIVED PT A/CONFUSED, RESTING IN BED, POSITIONED FOR COMFORT, DX:INADEQUATE VENTILATION, R/T PNU, VSS, AFEBRILE, BREATH SOUNDS ARE CLEAR, BREATHING UNLABORED, O2 SAT=97% ON 2L VIA NC, COLOR IS GOOD, PULSES PALPABLE, IV SITE INTACT, PATENT, NO REDNESS OR SWELLING, ORIENTED TO CALL LIGHT, SIDE RAILS UP X3, ROOM CLOSE TO NURSE STATION, WILL CONT' TO MONITOR AND ASSESS.
--- NOTE | 2019-09-26 08:00 | NUR ---
VISIT: AT BEDSIDE FOR ASSESSMENT OF PT, DISCUSSED POC WITH PT, PT VERBALIZES UNDERSTANDING, NEW ORDER GIVEN AT THIS TIME, WILL CONT TO MONITOR AND ASSESS.
[2019-09-26] MEDS: SERTRALINE HCL 50 MG TABLET PO SCH (08:21)
[2019-09-26] MEDS: TAMSULOSIN HCL 0.4 MG CAP PO SCH (08:21)
[2019-09-26] MEDS: CARVEDILOL 3.125 MG TABLET (COREG) PO SCH ×2 (08:22→20:09)
[2019-09-26] MEDS: ATORVASTATIN 20 MG TABLET PO SCH (08:23)
[2019-09-26] MEDS: FUROSEMIDE 40 MG/4 ML VIAL IVP SCH (08:23)
[2019-09-26] MEDS: HEPARIN SODIUM,PORCINE 5000 UNITS/ML VIAL SUBCUT SCH ×2 (08:26→20:10)
--- NOTE | 2019-09-26 08:30 | NUR ---
VISIT: AT BEDSIDE FOR ASSESSMENT OF PT, DISCUSSED POC WITH PT, PT VERBALIZES UNDERSTANDING, NEW ORDER GIVEN AT THIS TIME, WILL CONT TO MONITOR AND ASSESS.
--- NOTE | 2019-09-26 09:00 | NUR ---
CABLE TOWER OPERATOR: MORNING MEDS GIVEN, PER ORDERED BY Shyam, TOLERATED WELL, WILL CONT' TO MONITOR AND ASSESS.
[2019-09-26 12:00] VITALS: BP_SYST 139
--- NOTE | 2019-09-26 12:00 | NUR ---
NURSES NOTES: PT UP OOB, AMBULATING IN HALLWAYS WITH STAFF, MAINTAINS STEADY GAIT, NO DISTRESS, IS CALM COOPERATIVE AT THIS TIME, WILL CONT' TO MONITOR AND ASSESS.
--- NOTE | 2019-09-26 16:00 | NUR ---
NURSES NOTES: PT HAS NO SIGNIFICANT CHANGES NOTED, RMAINS STABLE, WILL CONT' WITH POC.
[2019-09-26 16:25] VITALS: BP_SYST 105
[2019-09-26] MEDS: D5NS 1,000 ML IV SCH (17:20)
--- NOTE | 2019-09-26 19:30 | NUR ---
CHANGE OF SHIFT; pt. awake, alert sitting up in chair. no acute distress. verbally responsive, reoriented to place. on fall risk precaution. call light at bedside. pt. room close to nurses station.
[2019-09-26 20:00] VITALS: BP_SYST 130
[2019-09-26] MEDS: MIRTAZAPINE 15 MG TABLET PO SCH (20:08)
--- NOTE | 2019-09-26 20:15 | NUR ---
NOTES: VS checked and due medications given and tolerated well. remain sitting on a chair at bedside. IVF infusing via rt. arm both arms noted with multiple skin bruises. denies any pain nor discomfort. O2 placed back on @ 2l/nc, O2 sat 89% but denies any shortness of breath. moves all extremities. pt. needs attended. call light at bedside.
--- NOTE | 2019-09-26 21:25 | NUR ---
NOTES: pt. pretty calm. on close observation.
--- NOTE | 2019-09-26 21:54 | NUR ---
NOTES: jac Paula for the other pt. helped pt. to get back to bed. resting when checked, tv on.
--- NOTE | 2019-09-26 23:37 | NUR ---
NOTES: pt. checked and sleeping. no distress.
[2019-09-27 00:07] VITALS: BP_SYST 92
--- NOTE | 2019-09-27 01:00 | NUR ---
NOTES: condition observed. pt. remain sleeping. IVF patent.
--- NOTE | 2019-09-27 02:45 | NUR ---
NOTES: pt. woke up and got out bed without calling, IV dragging, obtained skin tear on rt. arm with tape removed, will take a picture. pt. incontinent of stool and urine and its all over the floor, assisted to the restroom. changed gown and pt. cleaned and back to bed and kept warm. O2 on.
--- NOTE | 2019-09-27 04:09 | NUR ---
NOTES: condition observed, continue to monitor. pt. sleeping when checked.
[2019-09-27] MEDS: CEFEPIME 0.5 GM in D5W 50 ML IV SCH ×2 (05:13→16:23)
--- NOTE | 2019-09-27 05:25 | NUR ---
NOTES: pt. asleep when checked. due IV antibiotic infused. pt. repositioned self.
--- NOTE | 2019-09-27 06:29 | NUR ---
CLOSING NOTES; pt. already awake asking for breakfast. pt. hard of hearing, still confused and disoriented. nonadherent dressing applied on rt. forearm skin teat and wrapped with kerlix roll. IVF patent and continuous @ 40 cc/hr. pt. needs attended, offer if he needs to go restroom and said "no". for further care and assistance. needs close observation, does not use call light. pt. on fall risk precautions.will endorse to day shift.
[2019-09-27 06:48] LABS: BASOPHILS % (AUTO) 1.1 % (0.0-2.0); EOSINOPHILS # (AUTO) 0.2 K/uL (0.0-0.4); EOSINOPHILS % (AUTO) 3.9 % (0.0-4.0); LYMPHOCYTES # (AUTO) 0.6 K/uL (1.0-5.5); LYMPHOCYTES % (AUTO) 14.3 % (20.5-51.5); MEAN CORPUSCULAR HEMOGLOBIN 30 pg (27-31); MEAN CORPUSCULAR HGB CONC 32 % (32-36); MEAN CORPUSCULAR VOLUME 93 fL (79.0-98.0); MONOCYTES # (AUTO) 0.5 K/uL (0.0-1.0); MONOCYTES % (AUTO) 13.9 % (1.7-9.3); NEUTROPHILS # (AUTO) 2.6 K/uL (1.8-7.7); NEUTROPHILS % (AUTO) 66.8 % (40.0-70.0); PLATELET COUNT (AUTO) 144 K/uL (130-430); RED BLOOD CELL COUNT(AUTO) 3.97 MIL/uL (4.2-6.2); RED CELL DISTRIBUTION WIDTH 16.3 % (9.0-15.0); WHITE BLOOD COUNT (AUTO) 3.9 K/uL (4.8-10.8)
[2019-09-27 07:01] LABS: ANION GAP 5 (5-15); CALCIUM 8.2 mg/dL (8.4-11.0); CHLORIDE 101 mmol/L (98-107); CREATININE 1.12 mg/dL (0.55-1.30); GLUCOSE 96 mg/dL (70-99); POTASSIUM 3.6 mmol/L (3.5-5.1); SODIUM SERUM 137 mmol/L (136-145); UREA NITROGEN, BLOOD 17 mg/dL (8-21)
--- NOTE | 2019-09-27 07:25 | NUR ---
opening note patient is sitting on a chair watching tv, alert to name and , but forgetful, hard of hearing, educated paraprofessional aide light system and plan of care, patient stated "Okay" to me, on 2L nasal cannula and tolerating well with no signs of distress at this time, RT about to give breathing treatment to patient, IVF running and patient is tolerating well at this time, patient can ambulate to bed and bathroom with standby supervision, no other needs addressed at this time, fall/safety precautions in place.
[2019-09-27] MEDS: IPRATROPIUM/ALBUTEROL SULFATE 3 ML AMPUL.NEB (DUONEB) INH SCH ×2 (07:33→15:12)
[2019-09-27 08:00] VITALS: BP_SYST 97
[2019-09-27] MEDS: CARVEDILOL 3.125 MG TABLET (COREG) PO SCH (08:04)
[2019-09-27] MEDS: ATORVASTATIN 20 MG TABLET PO SCH (08:06)
[2019-09-27] MEDS: SERTRALINE HCL 50 MG TABLET PO SCH (08:06)
[2019-09-27] MEDS: TAMSULOSIN HCL 0.4 MG CAP PO SCH (08:06)
[2019-09-27] MEDS: FUROSEMIDE 40 MG/4 ML VIAL IVP SCH (08:06)
[2019-09-27] MEDS: HEPARIN SODIUM,PORCINE 5000 UNITS/ML VIAL SUBCUT SCH (08:09)
--- NOTE | 2019-09-27 10:34 | NUR ---
rounds patient sitting on chair, spoke to LAM and said that home health is arranged per family request, paged Dr Howell for DC orders, took patient on nasal cannula and tolerating well on 94% room air, will continue to monitor, fall/safety precautions in place. Addendum: 09/27/19 at 1125 by Caterina Bertrand RN LAM Blanco talked to Dr Howell, there is a disagreement with the family, Dr Howell will talk to the family again for a final decision.
[2019-09-27 12:00] VITALS: BP_SYST 105
--- NOTE | 2019-09-27 12:08 | NUR ---
PHYSICAL THERAPY CO-SIGN The Physical Therapy Progress Notes documented by Risk Management Intern have been reviewed. Reviewed/Co-Signed by: Frank Watts PT Documentation Done by: Mik Corbett PTA Addendum: 09/27/19 at 1209 by Frank Watts PT Amended: Links added.
--- NOTE | 2019-09-27 12:11 | NUR ---
DC Planning: Notified dr. Howell that dtr declined pt going to snf, she wants pt dc to home with HH. Dr Howell stated he will call the dtr/[place] to discuss the POC. CM will f/u the final dc order.
--- NOTE | 2019-09-27 12:16 | NUR ---
rounds patient sitting on chair and eating his lunch, tolerating well on room air, 96%, patient denies any SOB, no signs of distress, fall/safety precautions in place.
[2019-09-27 14:02] VITALS: BP_SYST 95
--- NOTE | 2019-09-27 14:12 | NUR ---
Discharge Planning: [facility] faxed pt referral to [facility] (f [phone] p [phone]) [facility] to follow up Addendum: 09/27/19 at 1529 by Uzma SAMUELS [facility] (f [phone] p [phone]) patient will go to room 17B, [facility] arranged transport with [facility] ([phone]) 5:00pm P/U. patient packet taken to nurse station charge nurse aware.
[2019-09-27] MEDS: D5NS 1,000 ML IV SCH (14:15)
--- NOTE | 2019-09-27 14:33 | NUR ---
patient sitting in chair patient sitting on chair watching tv, tolerating well on room air, no signs of distress, fall/safety precautions in place.
[2019-09-27 16:00] VITALS: BP_SYST 93
--- NOTE | 2019-09-27 16:23 | NUR ---
IV antibiotic patient resting in bed, educated on medication use and side effects, patient verbalized understanding, tolerating well, fall/safety precautions in place. report was given to Lynne at [facility].
--- NOTE | 2019-09-27 17:00 | NUR ---
PT TRANSFERRED Report given to Lynne at [facility]. Transfer packet with Transfer Orders and Medication Reconciliation form given to EMT with report. Exitcare provided. [facility] ID band removed, replaced with ID band with pt's name and . All belongings sent with patient. Patient left floor via gurney escorted by EMT in no distress.
== END 2019-09-27 17:00 | DRG 177 ==
LOC: SED 10:43 → SMU 13:22
PROVIDERS: ADMIT General Practice; ATTEND General Practice
DX: J69.0 Pneumonitis due to inhalation of food and vomit (principal); G93.41 Metabolic encephalopathy; J96.01 Acute respiratory failure with hypoxia; I50.43 Acute on chronic combined systolic (congestive) and diastolic (congestive) heart failure; I13.0 Hypertensive heart and chronic kidney disease with heart failure and stage 1 through stage 4 chronic kidney disease, or unspecified chronic kidney disease; N39.0 Urinary tract infection, site not specified; C16.9 Malignant neoplasm of stomach, unspecified; C18.9 Malignant neoplasm of colon, unspecified; R65.10 Systemic inflammatory response syndrome (SIRS) of non-infectious origin without acute organ dysfunction; I42.0 Dilated cardiomyopathy; N40.0 Benign prostatic hyperplasia without lower urinary tract symptoms; I08.0 Rheumatic disorders of both mitral and aortic valves; N18.9 Chronic kidney disease, unspecified; F03.90 Unspecified dementia, unspecified severity, without behavioral disturbance, psychotic disturbance, mood disturbance, and anxiety; R55 Syncope and collapse; D69.6 Thrombocytopenia, unspecified; I27.20 Pulmonary hypertension, unspecified; D72.819 Decreased white blood cell count, unspecified; E16.2 Hypoglycemia, unspecified; E03.9 Hypothyroidism, unspecified; Y90.1 Blood alcohol level of 20-39 mg/100 ml; Z85.46 Personal history of malignant neoplasm of prostate; Z87.01 Personal history of pneumonia (recurrent); Z79.899 Other long term (current) drug therapy; Z71.41 Alcohol abuse counseling and surveillance of alcoholic
CPT/HCPCS: 36415; 36600; 70450-TC; 71045; 76604; 80048; 80053; 81003; 82803-TC; 83036; 83605; 83735-TC; 83880; 84443-TC; 84484; 85025; 87040-TC; 87081; 87086; 92610-GN; 93005; 93880; 94640; 94760; 96365; 96375; 97110-GP; 97116-GP; 99285; G0482; J0692; J0696; J1644; J1940; J2060; J2543; J7042; J7060

== ENCOUNTER 2019-10-30 18:17 | Emergency (ER) | payer OTHER, MEDICARE ==
[~2019-10-30] VITALS: Ht 175.3 cm; Wt 81.6 kg
[2019-10-30 18:17] VITALS: BP_SYST 130
[~2019-10-30 18:17] MED LIST changes: -AZIT250T PO; -LISI-600 PO
--- NOTE | 2019-10-30 18:17 | NUR ---
Patient to ER bed 05 to gown for evaluation. Side rails up. Report given to JAYRO Cerda
--- NOTE | 2019-10-30 18:25 | NUR ---
Pt bib with c/o SOB. Per pt was recently dx with CHF and put on breathing treatments at home but they aren't working. V/S stable, pt is afebrile. Currently resting in bed, will continue to monitor.
--- NOTE | 2019-10-30 18:32 | NUR ---
EKG performed at BS by EMT. Physician given copy of EKG for review.
[2019-10-30] MEDS ORDERED: NACL 0.9% 1,000 ML IV ONE (18:39)
[2019-10-30] MEDS ORDERED: methylPREDNISolone SOD SUCC/PF 62.5 MG/ML VIAL IVP ONE (18:45)
[2019-10-30] MEDS ORDERED: ALBUTEROL SULFATE 0.083% 2.5 MG/3 ML VIAL.NEB INH ONE (18:45)
[2019-10-30] MEDS ORDERED: IPRATROPIUM BROM 0.5 MG/2.5 ML VIAL.NEB (ATROVENT) INH ONE (18:45)
--- NOTE | 2019-10-30 18:50 | NUR ---
Respiratory at bedside administering breathing treatment as ordered.
--- NOTE | 2019-10-30 19:00 | NUR ---
# 20 gauge angiocath placed to RFA. Use of asceptic technique. Opsite placed over site. Blood return noted. Blood for lab drawn from site. Flushed with 10 cc of normal saline. No evidence of infiltration noted. Patient tolerated well.
--- NOTE | 2019-10-30 19:10 | NUR ---
Respiratory at bedside performing ABG
--- NOTE | 2019-10-30 19:21 | NUR ---
Radiology at bedside performing CXR
[2019-10-30 19:26] LABS: BASOPHILS % (AUTO) 0.7 % (0.0-2.0); EOSINOPHILS % (AUTO) 0.5 % (0.0-4.0); HEMATOCRIT 37.5 % (36-54); HEMOGLOBIN 12.2 g/dL (14.0-18.0); LYMPHOCYTES # (AUTO) 0.4 K/uL (1.0-5.5); LYMPHOCYTES % (AUTO) 11.3 % (20.5-51.5); MEAN CORPUSCULAR HEMOGLOBIN 30 pg (27-31); MEAN CORPUSCULAR HGB CONC 33 % (32-36); MEAN CORPUSCULAR VOLUME 93 fL (79.0-98.0); MONOCYTES # (AUTO) 0.3 K/uL (0.0-1.0); MONOCYTES % (AUTO) 8.1 % (1.7-9.3); NEUTROPHILS # (AUTO) 2.9 K/uL (1.8-7.7); NEUTROPHILS % (AUTO) 79.4 % (40.0-70.0); PLATELET COUNT (AUTO) 145 K/uL (130-430); RED BLOOD CELL COUNT(AUTO) 4.02 MIL/uL (4.2-6.2); RED CELL DISTRIBUTION WIDTH 16.3 % (9.0-15.0); WHITE BLOOD COUNT (AUTO) 3.6 K/uL (4.8-10.8)
[2019-10-30 19:37] LABS: ANION GAP 11 (5-15); CALCIUM 8.5 mg/dL (8.4-11.0); CHLORIDE 97 mmol/L (98-107); CREATININE 1.19 mg/dL (0.55-1.30); GLUCOSE 78 mg/dL (70-99); POTASSIUM 4.4 mmol/L (3.5-5.1); SODIUM SERUM 131 mmol/L (136-145); UREA NITROGEN, BLOOD 21 mg/dL (8-21)
[2019-10-30 19:39] LABS: INR 1.1 (0.80-1.20); PROTHROMBIN TIME 10.9 SECS (9.5-12.5)
[2019-10-30 19:43] LABS: ALANINE AMINOTRANSFERASE 56 U/L (12-78); ALBUMIN 3.5 g/dL (3.4-4.8); ASPARTATE AMINOTRANSFERASE 49 U/L (10-37); LIPASE 113 U/L (73-393); TOTAL BILIRUBIN 0.6 mg/dL (0.0-1.0)
--- NOTE | 2019-10-30 19:46 | NUR ---
PT IN [facility], SIDE RAILS UP. ALERT AND ORIENTED, ABLE TO COMMUNICATE NEEDS WELL. NO SOB NOTED.
[2019-10-30 20:37] VITALS: BP_SYST 130
== END 2019-10-30 20:37 | disposition home or self-care (01) ==
LOC: SED 18:17
DX: J44.1 Chronic obstructive pulmonary disease with (acute) exacerbation (principal); R06.02 Shortness of breath; F41.9 Anxiety disorder, unspecified; I10 Essential (primary) hypertension; Z79.899 Other long term (current) drug therapy
CPT/HCPCS: 36415; 71045; 80053; 82550; 82803; 83605; 83690; 85025; 85610; 85730; 87040; 93005; 94640; 96374; 99285; J2930; J7030; J7613

== ENCOUNTER 2020-01-07 00:53 | Emergency (ER) | payer OTHER, MEDICARE ==
[~2020-01-07] VITALS: Ht 175.3 cm; Wt 72.6 kg
[2020-01-07 00:58] VITALS: BP_SYST 91
[2020-01-07] MEDS ORDERED: NACL 0.9% 1,000 ML IV ONE (01:18)
[2020-01-07 01:27] LABS: MEAN CORPUSCULAR HGB CONC 33 % (32-36)
[2020-01-07 01:32] LABS: MEAN CORPUSCULAR HEMOGLOBIN 31 pg (27-31); MEAN CORPUSCULAR VOLUME 94 fL (79.0-98.0); PLATELET COUNT (AUTO) 207 K/uL (130-430); RED CELL DISTRIBUTION WIDTH 15.6 % (9.0-15.0); WHITE BLOOD COUNT (AUTO) 3.3 K/uL (4.8-10.8)
[2020-01-07 01:40] LABS: ANION GAP 8 (5-15); CALCIUM 9.1 mg/dL (8.4-11.0); CHLORIDE 104 mmol/L (98-107); CREATININE 1.27 mg/dL (0.55-1.30); GLUCOSE 101 mg/dL (70-99); POTASSIUM 3.7 mmol/L (3.5-5.1); SODIUM SERUM 137 mmol/L (136-145); UREA NITROGEN, BLOOD 39 mg/dL (8-21)
[2020-01-07 01:46] LABS: ALANINE AMINOTRANSFERASE 38 U/L (12-78); ALBUMIN 2.8 g/dL (3.4-4.8); ASPARTATE AMINOTRANSFERASE 31 U/L (10-37); TOTAL BILIRUBIN 0.3 mg/dL (0.0-1.0)
[2020-01-07 02:00] LABS: ATYPICAL LYMPHOCYTES % 0 % (0-0); BAND % (MANUAL) 0 % (0-6); BASOPHILS % (MANUAL) 0 % (0-2); EOSINOPHILS % (MANUAL) 0 % (0-7); LYMPHOCYTES % (MANUAL) 24 % (20-46); MONOCYTES % (MANUAL) 7 % (0-11)
[2020-01-07 02:13] LABS: BILIRUBIN,URINE NEGATIVE (NEGATIVE); BLOOD, URINE NEGATIVE (NEGATIVE); CLARITY/URINE CLEAR (CLEAR); COLOR,URINE YELLOW (YELLOW); GLUCOSE,URINE NEGATIVE (NEGATIVE); KETONES,URINE NEGATIVE (NEGATIVE); LEUKOCYTE ESTERASE ,URINE NEGATIVE (NEGATIVE); NITRITE, URINE NEGATIVE (NEGATIVE); PH,URINE 5.5 (5.0-8.0); PROTEIN URINE NEGATIVE (NEGATIVE); UROBILINOGEN,URINE 0.2 (0.2-1.0)
[2020-01-07 03:47] VITALS: BP_SYST 96
== END 2020-01-07 03:47 | disposition home or self-care (01) ==
LOC: SED 00:53
DX: R10.30 Lower abdominal pain, unspecified (principal); I11.0 Hypertensive heart disease with heart failure; I50.9 Heart failure, unspecified; E78.5 Hyperlipidemia, unspecified; Z79.899 Other long term (current) drug therapy; Z85.038 Personal history of other malignant neoplasm of large intestine; Z85.46 Personal history of malignant neoplasm of prostate
CPT/HCPCS: 36415; 74176; 80053; 81003; 85007; 85027; 96360; 96361; 99284; J7030